=== PATIENT | female | born 1950 | race Caucasian/White ===

== ENCOUNTER 2017-02-25 19:24 | Inpatient (IN) | payer MEDICARE, MEDICAID ==
[~2017-02-25] VITALS: Ht 152.4 cm; Wt 44.9 kg
[2017-02-25 20:11] LABS: BASOPHILS 0.2 % (0-2); EOSINOPHILS 0.1 % (0-7); HEMOGLOBIN 13.2 g/dL (12-16); IMMATURE GRANULOCYTES 0.5 % (0-5); LYMPHOCYTES 6.3 % (15-50); MCH 25.5 pg (26.0-34.0); MCHC 31.4 g/dL (31.0-37.0); MCV 81.1 fL (80.0-100.0); MEAN PLATELET VOLUME 9.6 fL (7.4-10.4); NEUTROPHILS 85.9 % (40-80); PLATELET COUNT 212 10x3/uL (130-400); RBC 5.18 10x6/uL (4.00-5.40); RDW 16.2 % (11.5-14.5); WBC 10.4 10x3/uL (4.8-10.8)
[2017-02-25 20:31] LABS: ALBUMIN 3.2 g/dL (3.4-5.0); ANION GAP 15.7 mmol/L (8-16); BILIRUBIN - TOTAL 0.38 mg/dL (0.2-1.3); CALCIUM 10.9 mg/dL (8.5-10.1); CARBON DIOXIDE 27.3 mmol/L (21.0-32.0); PROTEIN - SERUM 7.3 g/dL (6.4-8.2)
[2017-02-25 20:54] LABS: MAGNESIUM - SERUM 1.4 mg/dL (1.8-2.4)
[2017-02-25 21:01] LABS: APPEARANCE CLEAR (CLEAR); BILIRUBIN NEGATIVE (NEGATIVE); COLOR YELLOW (YELLOW); GLUCOSE NEGATIVE (NEGATIVE); KETONE NEGATIVE (NEGATIVE); LEUKOCYTE ESTERASE NEGATIVE (NEGATIVE); NITRITE NEGATIVE (NEGATIVE); PROTEIN TRACE mg/dL (NEGATIVE); SPECIFIC GRAVITY 1.015 (1.005-1.020); UROBILINOGEN NORMAL (NORMAL)
[2017-02-25 21:09] LABS: UDS - AMPHET NEGATIVE QUAL (NEGATIVE); UDS - BARB NEGATIVE QUAL (NEGATIVE); UDS - BENZO NEGATIVE QUAL (NEGATIVE); UDS - COCAINE NEGATIVE QUAL (NEGATIVE); UDS - METH NEGATIVE QUAL (NEGATIVE); UDS - OPIATE NEGATIVE QUAL (NEGATIVE); UDS - PCP NEGATIVE QUAL (NEGATIVE); UDS - THC NEGATIVE QUAL (NEGATIVE)
[2017-02-25 21:11] LABS: TROPONIN-I 0.105 ng/mL (0.000-0.060)
[2017-02-26] VITALS (23 sets, daily range): BP systolic 98–161; BP diastolic 64–91; Ht 152.4 cm; Wt 44.9 kg
--- NOTE | 2017-02-26 01:30 | NUR ---
Received patient to 2302 from ER, transported via bed. Initial assessment performed, patient connected to monitors. No further needs at this time, all VSS and will continue to monitor.
--- NOTE | 2017-02-26 03:00 | NUR ---
Reassessment completed per flowsheet, patient resting in bed with eyes closed. Patient responds appropriately to most questions, cooperative but c/o pain with any type of contact. S1/S2 noted NSR on telemetry with HR 82, rhythmic and regular. Breathing is even and unlabored on 2L via NC with O2 sat 94%, Crackles noted bilateral upper with slightly diminished lower lobes. Generalized bruises/scabs noted. All pulses palpable with cap refill <3 sec. Denies other needs at this time, will continue to monitor.
--- NOTE | 2017-02-26 05:00 | NUR ---
Chlorhexidine bath given, patient tolerated well. No further needs at this time, all VSS and will continue to monitor.
--- NOTE | 2017-02-26 07:15 | NUR ---
REPORT RECIEVED FROM HAT LINER NURSE. PT RESTING IN BED QUIETLY. NO S/SX OF ACUTE DISTRESS NOTED AT THIS TIME. FULL ASSESSMENT COMPLETE PER FLOWSHEET. CALL LIGHT IN REACH. BED IN LOW POSITION. WILL CONT TO ASSESS FOR CHANGES.
[2017-02-26 07:56] LABS: INR 0.97 (0.85-1.17); PROTIME 12.8 SECONDS (11.6-15.0)
--- NOTE | 2017-02-26 09:53 | NUR ---
SPOKE WITH DAUGHTER. UPDATE PROVIDED. STATED SHE WAS OKAY WITH PT HAVING LUBAR PUNCTURE COMPLETE. STATED SHE WOULD BE BY AT NOON FOR VISITATAION.
--- NOTE | 2017-02-26 09:56 | NUR ---
BIT TONGUE TO LEFT SIDE. ORAL CARE PROVIDED TO REMOVE DRY BLOOD IN MOUTH.
--- NOTE | 2017-02-26 12:00 | NUR ---
DAUGHTER AT BEDSIDE. UPDATE PROVIDED.
--- NOTE | 2017-02-26 13:00 | NUR ---
MRI FORM COMPLETE WITH HELP OF DAUGHTER.
[2017-02-26 13:37] LABS: CKMB 3.7 U/L (0.0-3.6)
[2017-02-26 13:55] LABS: CREATINE KINASE 230 UL (21-215)
--- NOTE | 2017-02-26 14:30 | NUR ---
TAKEN TO MRI VIA STRETCHER.
--- NOTE | 2017-02-26 16:11 | NUR ---
PT TAKEN TO LUMBAR PUNCTURE. PREMEDICATION PROVIDED PER ORDERS FOR DR. DOMÍNGUEZ.
--- NOTE | 2017-02-26 17:30 | NUR ---
RETURNED FROM RADIOLOGY. CONNECTED TO ICU MONITORS. VSS. HOB AT 30 DEGREES. WILL CONT TO ASSESS.
[2017-02-26 18:12] LABS: APPEARANCE - CSF PINK; RBC - CSF 1530 cmm (0-0)
[2017-02-26 18:26] LABS: GLUCOSE - CSF 75 MG/DL (40-75); PROTEIN - CSF 89 MG/DL (12-60)
[2017-02-26 18:47] LABS: CKMB 2.2 U/L (0.0-3.6); CREATINE KINASE 166 UL (21-215); TROPONIN-I 0.046 ng/mL (0.000-0.060)
[2017-02-26] MEDS ORDERED: FORTEO PEN20 MCG SQ (18:58)
[2017-02-26] MEDS ORDERED: PREDNISONE10 MG PO (18:59)
[2017-02-26] MEDS ORDERED: AZULFIDINE500 MG PO (19:00)
[2017-02-26] MEDS ORDERED: HCTZ25 MG PO (19:00)
[2017-02-26] MEDS ORDERED: PRILOSEC10 M1 PO (19:01)
[2017-02-26] MEDS ORDERED: PAXIL40 MG PO (19:01)
[2017-02-26] MEDS ORDERED: ULTRAM50 MG PO (19:01)
[2017-02-26] MEDS ORDERED: VESICARE10 MG PO (19:02)
[2017-02-26] MEDS ORDERED: CYMBALTA30 MG PO (19:02)
[2017-02-26] MEDS ORDERED: ALENDRONATE SOD70 MG PO (19:03)
[2017-02-26] MEDS ORDERED: ROBAXIN500 MG PO (19:06)
[2017-02-26] MEDS ORDERED: OMEGA 3 FISH OI1 CAP PO (19:06)
--- NOTE | 2017-02-26 19:15 | NUR ---
Received patient awake in bed with eyes open, Assessment completed per flowsheet. Patient AO x4, disoriented to time. Eyes PERRLA @ 4mm with brisk response, sclera is white. Bruising noted around L eye, some swelling noted. S1/S2 noted NSR on telemetry with HR 86, rhythmic and regular. Breathing is shallow and unlabored on 2L via NC with O2 sat 96%, Crackles noted upper with diminished lower. Abdomen is flat and non-tender, bowel sounds active x4. Hurley secured in place with halley urine noted in collection. Full ROM all extremities with slight weakness noted, all pulses palpable with cap refill <3 sec. L subclavian CVL noted, dressing intact with fluids infusing. Patient denies pain or other needs at this time, all VSS and will continue to monitor.
--- NOTE | 2017-02-26 23:15 | NUR ---
Reassessment completed per flowsheet, patient resting in bed with eyes closed. S1/S2 noted NSR on telemetry with HR 76, rhythmic and regular. Breathing is shallow and unlabored on 2L via NC with O2 sat 95%, crackles noted bilateral upper with diminished lower. Patient AO x4 with calm and cooperative demeanor. Patient c/o headache 11/08, PRN pain medication given and will reassess. No further needs at this time, all VSS and will continue to monitor.
[2017-02-26 23:52] LABS: CKMB 5.3 U/L (0.0-3.6); CREATINE KINASE 437 UL (21-215); TROPONIN-I 0.037 ng/mL (0.000-0.060)
[2017-02-27] VITALS (13 sets, daily range): BP systolic 109–152; BP diastolic 48–90
--- NOTE | 2017-02-27 03:00 | NUR ---
Reassessment completed per flowsheet, patient resting in bed with eyes closed. Patient AO x4, calm and cooperative. S1/S2 noted NSR on telemetry with HR 71, rhythmic and regular. Breathing is shallow and unlabored on 2L via NC with O2 sat 95%. Patient states pain 1/10 in head, denies need for medication. No further needs at this time, all VSS and will continue to monitor.
[2017-02-27 04:35] LABS: BASOPHILS 0.2 % (0-2); HEMATOCRIT 38.2 % (36.0-48.0); HEMOGLOBIN 11.3 g/dL (12-16); IMMATURE GRANULOCYTES 0.3 % (0-5); LYMPHOCYTES 26.6 % (15-50); MCH 24.8 pg (26.0-34.0); MCHC 29.6 g/dL (31.0-37.0); MCV 83.8 fL (80.0-100.0); MEAN PLATELET VOLUME 9.4 fL (7.4-10.4); MONOCYTES 12.6 % (2-11); NEUTROPHILS 59.3 % (40-80); PLATELET COUNT 216 10x3/uL (130-400); RBC 4.56 10x6/uL (4.00-5.40); RDW 16.6 % (11.5-14.5)
[2017-02-27 04:59] LABS: ALBUMIN 2.7 g/dL (3.4-5.0); ANION GAP 6.1 mmol/L (8-16); BILIRUBIN - TOTAL 0.13 mg/dL (0.2-1.3); CALCIUM 9.8 mg/dL (8.5-10.1); CREATININE - SERUM 0.9 mg/dL (0.6-1.3); POTASSIUM - SERUM 3.4 mmol/L (3.5-5.1)
[2017-02-27 05:01] LABS: CARBON DIOXIDE 35.3 mmol/L (21.0-32.0); MAGNESIUM - SERUM 2.1 mg/dL (1.8-2.4)
--- NOTE | 2017-02-27 07:00 | NUR ---
SHIFT ASSESSMENT VIA FLOWSHEET, SEE FOR DETAILS.
[2017-02-27 07:38] LABS: APPEARANCE - CSF PINK
[2017-02-27 07:39] LABS: RBC - CSF 4800 cmm (0-0)
--- NOTE | 2017-02-27 10:27 | NUR ---
Is the patient Alert and Oriented? Yes 0 * How many steps to enter\exit or inside your home? 10 0 * PCP DR. BENJAMIN 0 * Pharmacy [facility] 0 * Preadmission Environment Home with Family 0 * ADLs Independent 0 * Equipment Cane 0 * List name and contact numbers for known caregivers / representatives who currently or will assist patient after discharge: DAUGHTER: FANTA COWAN [phone] 0 * Community resources currently utilized None 0 * Additional services required to return to the preadmission environment? Yes 0 * Can the patient safely return to the preadmission environment? Yes 0 * Has this patient been hospitalized within the prior 30 days at any hospital? No PATIENT IS AWAKE AND ALERT. SHE STATES SHE LIVES AT HOME WITH HER DAUGHTER, FANTA COWAN. SHE STATES THAT HER DAUGHTER WILL BE AVAILABLE TO DRIVE HER HOME AT DISCHARGE. PATIENT STATES HER PCP IS DR. BENJAMIN. SHE GETS HER MEDS FROM [facility]. PATIENT STATES SHE HAS A CANE AT HOME BUT DOES NOT USE IT. SHE STATES THERE ARE ABOUT 10 STEPS WITH A RAIL TO ENTER HER DAUGHTERS HOME. PATIENT STATES SHE HAD HOME HEALTH IN THE PAST BUT DOES NOT RECALL THE NAME OF THE AGENCY. PATIENT MAY BENEFIT FROM HOME HEALTH AT DISCHARGE.
--- NOTE | 2017-02-27 12:10 | NUR ---
GRANDDAUGHTER AT BEDSIDE, UPDATE PROVIDED.
--- NOTE | 2017-02-27 13:25 | NUR ---
PT TO ROOM 2217 VIA BED.
--- NOTE | 2017-02-27 13:53 | NUR ---
PT TO ROOM 2217 FROM ICU VIA BED.PT WITHOUT DISTRESS.BRUISES NTED TO LEFT EYE AND ILATERAL ARMS.02 AT 2 LITERS PER NASAL CANULA,RESP NON LABORED.HUTCHINS TO GRAVITY WITH CLEAR,YELLOW URINE IN BAG.LEFT UPPER ARM I PATENT ,LR @ 75. SCD'S IN PLACE,BUT MACHINE NEEDED.FALL PREVENTION INITIATED.DOOR OPEN TO MONITOR
--- NOTE | 2017-02-27 17:07 | NUR ---
REMAINS WITHOUT DISTRESS.FALL PREVENTION IN PLACE.MONITOR
[2017-02-28] VITALS: BP 130/82
[2017-02-28 04:00] VITALS: BP 122/78
--- NOTE | 2017-02-28 04:27 | NUR ---
ASSESSED AT THE BEGINNING OF THE SHIFT. PT IS ALERT AND ORIENTED, WITH SOME PERIODS OF CONFUSION. HER DAUGHTER WAS AT THE BEDSIDE DURING THE FIRST OF THE SHIFT. SHE IS ABLE TO TURN AND REPOSTION FOR COMFORT AND SKIN CARE. DURING THE NIGHT SHE RECEIVED A GOOD BATH AND HAD HER HAIR WASHED. SHE HAS A HUTCHINS TO VOID AND WE HAVE ASSISTED HER UP TO THE BATHROOM TO HAVE A BM. SHE IS WEARING HER SCD'S AND THE BED IS LOW, RAILS UP X'S 2 WITH THE CALL LIGHT AT HAND.
--- NOTE | 2017-02-28 07:33 | NUR ---
SLEEPING, BREATHING EVEN UNLABORED, CALL LIGHT IN REACH, GAETANO MAT ALARM ON, WILL CONTINUE TO MONITOR
[2017-02-28 09:19] VITALS: BP 109/71; BP 133/90
[2017-02-28 10:24] LABS: BASOPHILS 0.2 % (0-2); EOSINOPHILS 1.2 % (0-7); HEMATOCRIT 38.4 % (36.0-48.0); HEMOGLOBIN 11.4 g/dL (12-16); IMMATURE GRANULOCYTES 0.4 % (0-5); LYMPHOCYTES 23.2 % (15-50); MCH 25.4 pg (26.0-34.0); MCHC 29.7 g/dL (31.0-37.0); MCV 85.5 fL (80.0-100.0); MEAN PLATELET VOLUME 9.6 fL (7.4-10.4); MONOCYTES 11.2 % (2-11); NEUTROPHILS 63.8 % (40-80); PLATELET COUNT 224 10x3/uL (130-400); RBC 4.49 10x6/uL (4.00-5.40); RDW 16.8 % (11.5-14.5); WBC 5.1 10x3/uL (4.8-10.8)
[2017-02-28 10:42] LABS: ALBUMIN 2.8 g/dL (3.4-5.0); ALKALINE PHOSPHATASE 56 U/L (46-116); ALT (SGPT) 26 U/L (10-68); BILIRUBIN - TOTAL 0.19 mg/dL (0.2-1.3); CALC OSMOLALITY 288 mosm/kg (275-300); CALCIUM 9.5 mg/dL (8.5-10.1); CARBON DIOXIDE 31.7 mmol/L (21.0-32.0); CHLORIDE - SERUM 106 mmol/L (98-107); CREATININE - SERUM 0.8 mg/dL (0.6-1.3); GLUCOSE 140 mg/dL (74-106); POTASSIUM - SERUM 3.4 mmol/L (3.5-5.1); PROTEIN - SERUM 7.4 g/dL (6.4-8.2); SODIUM 144 mmol/L (136-145); UREA NITROGEN 12 mg/dL (7-18); eGFR NON AFRICAN AMERICAN 76 mL/min (90-120)
--- NOTE | 2017-02-28 12:24 | EEG ---
PATIENT:MARY LOUIE DATE OF SERVICE: 02/25/17 MEDICAL RECORD: [id number] DATE OF : 50 LOCATION:D.221 D.MS ADMISSION DATE: 02/25/17 REFERRING PHYSICIAN: INTERPRETING PHYSICIAN: JAG MENA MD DATE OF SERVICE: 02/27/2017 REFERRED BY: Dr. Benita Lang as an inpatient currently in room 2302. ELECTROENCEPHALOGRAM NUMBER: [id number]. DATE OF EXAMINATION: 02/26/2017 at 12:15 p.m. TECHNICAL DATA: This electroencephalographic recording consisted of approximately 20 minutes of data collection utilizing the international 10/20 system of electrode placement and both referential and non-referential montages. Sixteen channels of electrocerebral recording are accompanied by a 17th channel dedicated to the electrocardiographic rhythm and 2 channels of electromyographic recording. Recording is performed in the awake and drowsy states utilizing activation by photic stimulation. ELECTROENCEPHALOGRAPHIC DATA: The awake state comprises approximately 40% of the recorded electrocerebral activity. Electromyographic artifact is prominent and rapid eye movements are seen. The posterior dominant background consists of a symmetric, semi-rhythmic, waxing and waning 5-6 Hz theta activity, which is suppressed by eye opening. Also seen is an intermittent irregular generalized and symmetric 2-3 Hz delta slowing, which occurs for periods of 1-2 seconds approximately once every 1-2 pages. The drowsy state comprises the remaining portion of the recorded electrocerebral activity. Electromyographic artifact is diminished and rapid eye movements are not seen. The posterior dominant background is relatively suppressed. Delta slowing is more prominent in stage I sleep. No focal slowing is identified. No epileptiform discharges are seen. Photic stimulation induces no abnormal change in the recorded electrocerebral activity. INTERPRETATION: 1. Intermittent slow, generalized (awake and drowsy). 2. Background slow. This electroencephalographic recording is indicative of a mild to moderate diffuse encephalopathy. TRANSINT:[id number] Voice Confirmation ID: [id number] DOCUMENT ID: [id number] ELECTROENCEPHALOGRAM REPORT [id number] MARY LOUIE JAG MENA MD at 1224 CC: [id number] DICTATION DATE: 02/27/17 0652 TUNNELING MACHINE OPERATOR: 02/28/17 0003 ADM IN [place] [id number] [place] [address]
[2017-02-28 12:45] VITALS: BP 136/89
--- NOTE | 2017-02-28 12:48 | NUR ---
NUTRITION MONITORING & EVAL CHART REVIEWED, PT VISIT. TOLERATING REG DIET. TAKES CONSIDERABLE TIME TO EAT MEALS. WILL CONTINUE TO HONOR FOOD PREFERNECES. RD FOLLOWING
[2017-02-28] MEDS ORDERED: ZPAK PO (14:10)
--- NOTE | 2017-02-28 14:48 | NUR ---
PT CONFUSED AT TIMES RESP EVEN AND NONLABORED IV TO LEFT FOREARM PATENT AND INTACT PT DENIES NEEDS AT THIS TIME SRX2 BED AT LOWEST SETTING CALL LIGHT WITHIN REACH WILL CONTINUE TO MONITOR
--- NOTE | 2017-02-28 16:16 | NUR ---
Received DC order, patient on rom air POX 97- 99%. Patient will be discharged home with House Calls and patient denies any HH needs at this time. Daughter at bedside and will be driving her home.
--- NOTE | 2017-02-28 17:47 | NUR ---
DISCHARGE INSTRUCTIONS GIVEN TO PATIENT AND DAUGHTER, QUESTIONS ANSWERED, IV REMOVED TIP INTACT, DISCHARGED PER WC WITH BELONGINGS
[2017-03-01 03:08] LABS: ACID FAST SMEAR Negative (()); AFB SPECIMEN PROCESSING Concentration (())
== END 2017-02-28 18:22 | disposition home or self-care (01) | DRG 100 ==
LOC: D.ER 19:24 → D.MS 23:16 → D.ICU 23:16 → D.MS 02-27 13:29
PROVIDERS: Emergency Medicine; Psychiatry & Neurology Neurology; Radiology Diagnostic Radiology; ADMIT Family Medicine
PROC: 009U3ZZ Drainage of Spinal Canal, Percutaneous Approach (ICD-10-PCS; principal; 2017-02-26)
DX: R56.9 Unspecified convulsions (principal); G93.40 Encephalopathy, unspecified; M06.9 Rheumatoid arthritis, unspecified; K21.9 Gastro-esophageal reflux disease without esophagitis; F32.9 Major depressive disorder, single episode, unspecified; M81.0 Age-related osteoporosis without current pathological fracture; E87.6 Hypokalemia; J20.9 Acute bronchitis, unspecified

== ENCOUNTER 2020-02-05 16:47 | Inpatient (IN) | payer MEDICARE, MEDICAID ==
[~2020-02-05] VITALS: Ht 152.4 cm; Wt 56.1 kg
[~2020-02-05 16:47] MED LIST: ALENDRONATE SOD70 MG PO; AZULFIDINE500 MG PO; CYMBALTA30 MG PO; FORTEO PEN20 MCG SQ; HCTZ25 MG PO; OMEGA 3 FISH OI1 CAP PO; PAXIL40 MG PO; PREDNISONE10 MG PO; PRILOSEC10 M1 PO; ROBAXIN500 MG PO; ULTRAM50 MG PO; VESICARE10 MG PO; ZPAK PO
[2020-02-05] MEDS ORDERED: VESICARE10 MG PO (16:58)
[2020-02-05] MEDS ORDERED: LIPITOR20 MG PO (16:58)
[2020-02-05] MEDS ORDERED: PAXIL20 MG PO (16:59)
[2020-02-05] MEDS ORDERED: MAG-OX 400 MG400 MG PO (17:00)
[2020-02-05] MEDS ORDERED: HYDROXYCHLOROQ200 MG PO (17:00)
[2020-02-05] MEDS ORDERED: ULTRAM50 MG PO (17:01)
[2020-02-05] MEDS ORDERED: LIORESAL 10 MG10 MG PO (17:01)
[2020-02-05] MEDS ORDERED: AZULFIDINE500 MG PO (17:02)
[2020-02-05] MEDS ORDERED: GABAPENTIN300 MG PO (17:03)
--- NOTE | 2020-02-05 17:21 | NUR ---
PT'S DAUGHTERS PHONE NUMBER FOR EMERGENCY CONTACT [phone]
[2020-02-05 17:45] LABS: APTT 33.4 SECONDS (22.8-39.4); INR 0.95 (0.85-1.17); PROTIME 12.7 SECONDS (11.6-15.0)
[2020-02-05 17:47] LABS: HEMATOCRIT 36.3 % (36.0-48.0); HEMOGLOBIN 10.5 g/dL (12-16); LYMPHOCYTES 34.4 % (15-50); MCH 24.8 pg (26.0-34.0); MCHC 28.9 g/dL (31.0-37.0); MCV 85.6 fL (80.0-100.0); MEAN PLATELET VOLUME 8.7 fL (7.4-10.4); NEUTROPHILS 56.4 % (40-80); PLATELET COUNT 292 10x3/uL (130-400); RBC 4.24 10x6/uL (4.00-5.40); RDW 18.2 % (11.5-14.5)
[2020-02-05 17:56] LABS: CALC OSMOLALITY 284 mosm/kg (275-300); CALCIUM 8.3 mg/dL (8.5-10.1); CARBON DIOXIDE 29.2 mmol/L (21.0-32.0); CHLORIDE - SERUM 107 mmol/L (98-107); CREATININE - SERUM 0.8 mg/dL (0.6-1.3); POTASSIUM - SERUM 3.9 mmol/L (3.5-5.1); SODIUM 142 mmol/L (136-145); UREA NITROGEN 21 mg/dL (7-18); eGFR NON AFRICAN AMERICAN 75 mL/min (90-120)
[2020-02-05 17:57] LABS: BILIRUBIN NEGATIVE (NEGATIVE); GLUCOSE NEGATIVE (NEGATIVE); KETONE NEGATIVE (NEGATIVE); NITRITE NEGATIVE (NEGATIVE); UROBILINOGEN NORMAL (NORMAL)
[2020-02-05 17:59] LABS: ALBUMIN 2.7 g/dL (3.4-5.0); ALKALINE PHOSPHATASE 51 U/L (30-120); ALT (SGPT) 19 U/L (10-68); PROTEIN - SERUM 6.4 g/dL (6.4-8.2)
[2020-02-05 18:00] LABS: GLUCOSE 78 mg/dL (74-106)
--- NOTE | 2020-02-05 18:14 | NUR ---
spoke with daughter iona [phone]
--- NOTE | 2020-02-05 19:15 | NUR ---
PATIENT RESTING IN BED WITH NO S/S OF DISTRESS. PATIENT DENIES NEEDS AT THIS TIME. BED IN LOWEST POSITION AND CALL LIGHT WITHIN REACH. ENCOURAGED THE PATIENT TO CALL IF SHE HAS NEEDS. WILL CONTINUE TO MONITOR.
--- NOTE | 2020-02-05 19:58 | NUR ---
SPOKE WITH DR. REDDING IN REGARDS TO [facility]. DR. REDDING CONFIRMED TO LEAVE [facility] OFF.
[2020-02-05] MEDS ORDERED: MULTI-DAY VITAM1 TAB PO (20:08)
[2020-02-05 21:22] VITALS: BP 145/89; BMI 19.5
[2020-02-05 23:58] VITALS: BP 104/72
[2020-02-06] VITALS (14 sets, daily range): BP systolic 122–168; BP diastolic 65–105
--- NOTE | 2020-02-06 06:50 | NUR ---
WALKED IN PATIENT ROOM, PATIENT NOT EASILY AROUSABLE. CHECKED VITALS, O2 IN THE 50'S. PLACED PATIENT ON OXYGEN. O2 AT 96% ON 4L OXYGEN. PATIENT ABLE TO COMMUNICATE PERSON, PLACE, AND SITUATION. PLACED PATIENT ON CONTINUOUS PULSE OX AND TOOK WEB DEVELOPER PROGRAMMER BUTTON FROM PATIENT. WILL CONTINUE TO MONITOR PATIENT.
[2020-02-06 07:10] LABS: HEMATOCRIT 37.1 % (36.0-48.0); HEMOGLOBIN 10.5 g/dL (12-16); LYMPHOCYTES 35.6 % (15-50); MCH 24.9 pg (26.0-34.0); MCHC 28.3 g/dL (31.0-37.0); MEAN PLATELET VOLUME 8.6 fL (7.4-10.4); NEUTROPHILS 56.5 % (40-80); PLATELET COUNT 316 10x3/uL (130-400); RBC 4.22 10x6/uL (4.00-5.40); RDW 17.8 % (11.5-14.5)
[2020-02-06 07:11] LABS: MCV 87.9 fL (80.0-100.0); WBC 9.7 10x3/uL (4.8-10.8)
[2020-02-06 07:45] LABS: ALBUMIN 2.6 g/dL (3.4-5.0); ALKALINE PHOSPHATASE 52 U/L (30-120); ALT (SGPT) 20 U/L (10-68); BILIRUBIN - TOTAL 0.25 mg/dL (0.2-1.3); CALC OSMOLALITY 282 mosm/kg (275-300); CALCIUM 8.5 mg/dL (8.5-10.1); CARBON DIOXIDE 28.1 mmol/L (21.0-32.0); CHLORIDE - SERUM 106 mmol/L (98-107); CREATININE - SERUM 0.8 mg/dL (0.6-1.3); GLUCOSE 98 mg/dL (74-106); POTASSIUM - SERUM 3.4 mmol/L (3.5-5.1); PROTEIN - SERUM 7.1 g/dL (6.4-8.2); SODIUM 141 mmol/L (136-145); UREA NITROGEN 17 mg/dL (7-18); eGFR NON AFRICAN AMERICAN 75 mL/min (90-120)
[2020-02-06 09:40] LABS: CHOL - HDL RATIO 2.2 ratio (2.3-4.1)
--- NOTE | 2020-02-06 10:58 | NUR ---
AT APPROX 0900, ALEKSANDER ARITA ROUNDED AND HAD ME GIVE PT 0.25 ML OF NARCAN. ADMINISTERED PER ORDERS. PT DID BECOME MORE AROUSABLE. HER SPEECH WAS STILL SLURRED AND SHE WAS NOT MAKING SENSE WITH MOST OF HER CONVERSATION. PT SENT TO RADIOLOGY FOR HEAD CT AT THAT TIME. LAB VALUES RETURNED WITH A CRITICAL VALUE ON HER D-DIMER. REPORTED THAT TO ALEKSANDER. SHE ORDERED CTA ON PT. PT ONLY HAD 22G IV TO HER RIGHT FOREARM, NEEDED 20G FOR TEST. HAD TO CALL ER FOR ASSISTANCE OBTAINING PATENT IV, PLACED 20G TO RIGHT FOREARM. PT TAKEN BACK TO RADIOLOGY. CALLED REPORT TO LUL BOLAÑOS IN ICU. NOTIFIED FAMILY MEMBER OF TRANSFER.
--- NOTE | 2020-02-06 11:27 | NUR ---
REC'D PT TO ICU AFTER CT DONE. ALL MONITORING EQUIPMENT ATTACHED AND ALARMS SET.
--- NOTE | 2020-02-06 14:22 | NUR ---
PT REPOSITIONED FOR COMFORT AND ECHO ECH HERE AT BS.
--- NOTE | 2020-02-06 14:54 | NUR ---
PT DIAPHORETIC AND CONFUSED. FSBS PERFORMED AND RESULTS REVEAL 56. 1 AMP D50 GIVEN AND NOTIFIED DR WALTERS. RECEIVED NEW ORDERS.
--- NOTE | 2020-02-06 15:31 | NUR ---
FSBS 194. RT EYE RED. DR WALTERS NOTIFIED AND CAME TO BEDSIDE. PT FOLLOWS COMMAND AND WOOD. VSS.
--- NOTE | 2020-02-06 15:51 | NUR ---
PT WITH DECREASED LOC. NARCAN GIVEN AND PT WORE UP. ENCOURAGED PT TO COUGH AND DEEP BREATH.
--- NOTE | 2020-02-06 16:03 | NUR ---
REPORTED TO DR WALTERS RE: NARCAN GIVEN AND REC'D NEW ORDERS TO DECREASE DILAUDID.
--- NOTE | 2020-02-06 20:35 | NUR ---
PT RECEIVED FROM ICU TO CV TOLERATED TRANSFER WELL TO CVICU BED. PLACE N/C 2LPM TO WALL AND TO MONITOR. VITAL SIGNS STABLE. NO S/S OF DISTRESS. RIGHT EYE RED AND SWOLLEN UPON REPORT. DENIES PAIN OR DISCOMFORT TO EYE. PT DOES MOAN WITH MOVING BUT IS QUICKLY CALM. WILL CONTINUE TO OBSERVE.
--- NOTE | 2020-02-06 20:55 | NUR ---
DAUGHTER CALLED, PASSCODE GIVEN. UPDATE GIVEN.
--- NOTE | 2020-02-06 22:05 | NUR ---
PT SIGNGED CONCENTS SPEECH NOT CLEAR BUT ORIENTED TO PERSON, PLACE, TIME, AND SITUATION. HANDS CONTRACTED FROM ARTHRITIS MAKING SIGNITURE UNCLEAR, SIGNING WITNESSED BY OTHER RN. WILL CONTINUE TO OBSERVE.
[2020-02-07] VITALS (45 sets, daily range): BP systolic 82–202; BP diastolic 49–116
--- NOTE | 2020-02-07 00:50 | NUR ---
PT RESTING WITH EYES CLOSED AND CHEST RISING. NO S/S OF DISTRESS. WILL CONTINUE TO OBSERVE.
--- NOTE | 2020-02-07 02:52 | NUR ---
PT COMPLAINING OF HEADACHE AND RIGHT EYE WITH INCREASING BULG. DR. WALTERS CALLED AND REPORTED HEADACHE AND INCREASED BULGE, HE STATED HE WAS AWARE AND IT WAS NOT AN CONCERN AND NO ORDERS GIVEN.
[2020-02-07 06:14] LABS: CALC OSMOLALITY 290 mosm/kg (275-300); CALCIUM 8.9 mg/dL (8.5-10.1); CARBON DIOXIDE 30.1 mmol/L (21.0-32.0); CHLORIDE - SERUM 108 mmol/L (98-107); CREATININE - SERUM 0.6 mg/dL (0.6-1.3); MAGNESIUM - SERUM 1.9 mg/dL (1.8-2.4); SODIUM 143 mmol/L (136-145); UREA NITROGEN 14 mg/dL (7-18); eGFR NON AFRICAN AMERICAN > 90 mL/min (90-120)
[2020-02-07 06:19] LABS: GLUCOSE 192 mg/dL (74-106)
--- NOTE | 2020-02-07 06:27 | NUR ---
CHG BATH GIVEN X2 NURSES, COMPLETE LINEN CHANGE PROVIDED.
--- NOTE | 2020-02-07 07:00 | NUR ---
PT REPORT RECEIVED FROM AMUSEMENT PARK ENTERTAINER NURSE. NO ACUTE SIGNS OF DISTRESS NOTED. PT RIGHT EYE SWOLLEN AND BLOODY. SHIFT ASSESSMENT COMPLETED. WILL CONTINUE TO MONITOR
[2020-02-07 07:43] LABS: HEMATOCRIT 37.6 % (36.0-48.0); HEMOGLOBIN 10.5 g/dL (12-16); LYMPHOCYTES 9.9 % (15-50); MCH 24.8 pg (26.0-34.0); MCHC 27.9 g/dL (31.0-37.0); MCV 88.9 fL (80.0-100.0); MEAN PLATELET VOLUME 9.2 fL (7.4-10.4); NEUTROPHILS 82.5 % (40-80); PLATELET COUNT 268 10x3/uL (130-400); RBC 4.23 10x6/uL (4.00-5.40); RDW 18.3 % (11.5-14.5); WBC 9.7 10x3/uL (4.8-10.8)
--- NOTE | 2020-02-07 07:58 | NUR ---
DR REDDING'S NURSE PRACTITIONER IN ROOM. UPDATE GIVEN. ASSESSED RT EYE.
--- NOTE | 2020-02-07 09:00 | NUR ---
PT FAMILY MEMBER, FANTA COWAN, CALLED TO OBTAIN CONSENT FOR ANESTHESIA. CONSENT OBTAINED, AND WITNESSED BY KATHERIN MCCARTY.
--- NOTE | 2020-02-07 09:56 | NUR ---
EKG PERFORMED FOR SURGERY. PT TOLERATED WELL. STATES SHE IS COLD. WARM BLANKET GIVEN TO PT. WILL CONTINUE TO MONITOR
--- NOTE | 2020-02-07 11:25 | NUR ---
PT STATED THAT SHE NEEDED TO THROW UP. ZOFRAN GIVEN AT THIS TIME. PT VERY ANXIOUS. CONSTANTLY CALLING FOR NURSE.
--- NOTE | 2020-02-07 14:06 | NUR ---
PT HAS BEEN PREOPPED. WAITING ON SURGERY CREW
--- NOTE | 2020-02-07 14:29 | NUR ---
SURGERY IN ROOM PREPARING TO TRANSPORT PT TO OR. WILL CONTINUE TO MONITOR
--- NOTE | 2020-02-07 16:46 | NUR ---
PT ARRIVED TO UNIT INTUBATED. HOOKED UP TO ICU MONITOR. PULSES PALPABLE IN LT LEG. NO SIGNS OF DISTRESS NOTED. ON VENT PER RT.
--- NOTE | 2020-02-07 16:48 | MORECARE ---
CASE MANAGEMENT DISCHARGE SUMMARY PATIENT: MARY LOUIE UNIT: [id number] ADM DATE: 02/05/20 AGE: 69 : 50 SEX: F ROOM/BED: [facility] AUTHOR: YASMIN,DOC PHYSICIAN: REFERRING PHYSICIAN: PRISCILLA WALTERS MD DATE OF SERVICE: 02/07/20 Discharge Plan Patient Name: MARY LOUIE Facility: [facility]:[place] : 1950 Planned Disposition: Anticipated Discharge Date: Discharge Date: Expected LOS: Initial Reviewer: [email or web address] Initial Review Date: 02/07/2020 Generated: 02/07/20 5:47 pm Comments DCP- Discharge Planning Updated by [email or web address]: Jillian Lopez on 02/07/20 3:[address] CM attempted to see patient today regarding discharge planning / needs. Patient was in surgery at this time. CM will continue to follow and assist as needed with discharge planning. DCPIA - Discharge Planning Initial Assessment Updated by [email or web address]: Jillian Lopez on 02/07/20 4:39 pm * Is the patient Alert and Oriented? No * How many steps to enter\exit or inside your home? Patient Name: MARY LOUIE Page [phone] at 1648 All edits/amendments must be made on the electronic document DICTATION DATE: 02/07/201646 PANEL MAKER: KINGSTON 02/07/201646 RPT#: [id number] DC DATE: STATUS: ADM IN [facility] [address] [place] [address] END OF REPORT
--- NOTE | 2020-02-07 18:37 | NUR ---
DECREASED FIO2 TO 60% PER ABG
--- NOTE | 2020-02-07 20:30 | NUR ---
DAUGHTER CALLED GIVEN REPORT AFTER PASSCODE GIVEN.
[2020-02-08] VITALS (48 sets, daily range): BP systolic 87–182; BP diastolic 48–95; BMI 19.5
--- NOTE | 2020-02-08 00:52 | NUR ---
PT RECEIVED INTUBATED AND SEDATED. AROUSED EASILY. HUTCHINS PATENT. COVERING OVER RIGHT EYE. RIGHT IJ PATENT. NO S/S OF DISTRESS. WILL CONTINUE TO OBSERVE.
[2020-02-08 06:35] LABS: CALC OSMOLALITY 276 mosm/kg (275-300); CALCIUM 7.9 mg/dL (8.5-10.1); CARBON DIOXIDE 24.3 mmol/L (21.0-32.0); CHLORIDE - SERUM 107 mmol/L (98-107); CREATININE - SERUM 0.8 mg/dL (0.6-1.3); GLUCOSE 70 mg/dL (74-106); MAGNESIUM - SERUM 1.5 mg/dL (1.8-2.4); SODIUM 140 mmol/L (136-145); UREA NITROGEN 13 mg/dL (7-18); eGFR NON AFRICAN AMERICAN 75 mL/min (90-120)
--- NOTE | 2020-02-08 07:25 | NUR ---
[facility] ASS[facility] PROGRAMMER, REPORTED URINE OUTPUT 275 AND RECEIVED ORDER FOR PRO BNP. LAB COLLECTED AND SENT TO LAB. REPORTED TO ONCOMING NURSE.
[2020-02-08 07:29] LABS: HEMATOCRIT 26.8 % (36.0-48.0); HEMOGLOBIN 7.8 g/dL (12-16); LYMPHOCYTES 19.9 % (15-50); MCH 24.8 pg (26.0-34.0); MCHC 29.1 g/dL (31.0-37.0); MCV 85.4 fL (80.0-100.0); MEAN PLATELET VOLUME 9.6 fL (7.4-10.4); NEUTROPHILS 73.8 % (40-80); PLATELET COUNT 246 10x3/uL (130-400); RBC 3.14 10x6/uL (4.00-5.40); RDW 17.7 % (11.5-14.5); WBC 8.7 10x3/uL (4.8-10.8)
--- NOTE | 2020-02-08 09:56 | NUR ---
0700 PT RECIEVED ON VENT, ETT SECURED, VSS, PT EASILY AGITATED AND DOES NOT FOLLOW COMMANDS BUT MOVES ALL EXTREMETIES, HITTING HANDS ON SIDE RAILS AND UNABLE TO BE REORIENTED, PT TO BE WEANED OFF VENT PER RT, R EYE EDEMATOUS AND RED, SEE SHIFT ASSESSMENT FOR DETAILS PRBCS ORDERED AND INFUSING PO MEDS HELD PER DR DE LA TORRE
--- NOTE | 2020-02-08 11:40 | MORECARE ---
CASE MANAGEMENT DISCHARGE SUMMARY PATIENT: MARY LOUIE UNIT: [id number] ADM DATE: 02/05/20 AGE: 69 : 50 SEX: F [facility] AUTHOR: MANNY HOFFMAN PHYSICIAN: REFERRING PHYSICIAN: PRISCILLA WALTERS MD DATE OF SERVICE: 02/08/20 Discharge Plan Patient Name: MARY LOUIE Facility: [facility]:[place] : 1950 Planned Disposition: Anticipated Discharge Date: Discharge Date: Expected LOS: Initial Reviewer: [email or web address] Initial Review Date: 02/07/2020 Generated: 02/08/20 12:39 pm DCP- Discharge Planning Updated by [email or web address]: Jillian Lopez on 02/08/20 10:[address] Patient is currently on vent sedated. CM has attempted to call daughter Fifi Barkley [phone] multiple times this am and has gotten a busy signal each time. CM will continue to try to contact daughter for discharge planning. DCP- Discharge Planning Updated by [email or web address]: Jillian Lopez on 02/07/20 3:[address] CM attempted to see patient today regarding discharge planning / needs. Patient was in surgery at this time. CM will continue to follow and assist as needed with discharge planning. DCPIA - Discharge Planning Initial Assessment Updated by [email or web address]: Jillian Lopez on 02/07/20 4:39 pm * Is the patient Alert and Oriented? No * How many steps to enter\exit or inside your home? Last DP export: 02/07/20 3:48 p Patient Name: MARY LOUIE Page [phone] at 1140 All edits/amendments must be made on the electronic document DICTATION DATE: 02/08/20 1139 KISS MIXER: KINGSTON 02/08/20 1139 RPT#: [id number] DC DATE: STATUS: ADM IN [facility] [address] [place] [address] END OF REPORT
--- NOTE | 2020-02-08 13:22 | NUR ---
pt extubated 1320, pulling at cvl and all monitoring equipment so continued with restraints per dr young
--- NOTE | 2020-02-08 13:40 | NUR ---
WHEN NOT BEING STIMULATED PT IS APNIC AND SPO2 DROPPING INTO THE 70S, RT AWARE AND DR RELL XIONG, STATED HE WOULD GIVE BIPAP ORDERS TO JONI RT. WHEN PT IS STIMULATED DURING APNIC EPISODES SHE COMES TO GASPING FOR BREATH THEN AGAIN DOZES OFF AND AGAIN IS APNIC.
--- NOTE | 2020-02-08 14:35 | NUR ---
pt became apnic spo2 dropped, unresponsive, began bagging pt, called rt and dr young, intubated by dr young, daughter called and updated
--- NOTE | 2020-02-08 15:29 | MORECARE ---
CASE MANAGEMENT DISCHARGE SUMMARY PATIENT: MARY LOUIE UNIT: [id number] ADM DATE: 02/05/20 AGE: 69 : 50 SEX: F ROOM/BED: [facility] AUTHOR: MANNY HOFFMAN PHYSICIAN: REFERRING PHYSICIAN: PRISCILLA WALTERS MD DATE OF SERVICE: 02/08/20 Discharge Plan Patient Name: MARY LOUIE Facility: [facility] : 1950 Planned Disposition: Anticipated Discharge Date: Discharge Date: Expected LOS: Initial Reviewer: [email or web address] Initial Review Date: 02/07/2020 Generated: 02/08/20 4:28 pm Comments DCP- Discharge Planning Updated by [email or web address]: Jillian Loepz on 02/08/20 2:[address] CM attempted to call patient's daughter again for discharge planning Fifi Barkley [phone] and also called patient's listed number [phone] and no voicemail set up. CM will continue to attempt to contact family. DCP- Discharge Planning Updated by [id number]: Jillian Lopez on 02/08/20 10:[address] Patient is currently on vent sedated. CM has attempted to call daughter Fifi Barkley [phone] multiple times this am and has gotten a busy signal each time. CM will continue to try to contact daughter for discharge planning. DCP- Discharge Planning Updated by [email or web address]: Jillian Lopez on 02/07/20 3:[address] CM attempted to see patient today regarding discharge planning / needs. Patient was in surgery at this time. CM will continue to follow and assist as needed with discharge planning. DCPIA - Discharge Planning Initial Assessment Updated by [email or web address]: Jillian Lopez on 02/07/20 4:39 pm * Is the patient Alert and Oriented? No * How many steps to enter\exit or inside your home? Last DP export: 02/08/20 10:40 a Patient Name: MARY LOUIE Page [phone] at 1529 All edits/amendments must be made on the electronic document DICTATION DATE: 02/08/201527 COOK PICKLED MEAT: KINGSTON 02/08/201527 RPT#: [id number] DC DATE: STATUS: ADM IN [facility] [address] [place] [address] END OF REPORT
--- NOTE | 2020-02-08 16:49 | NUR ---
PT TO CT WITH CT STAFF, RT AND KICK PRESS OPERATOR
--- NOTE | 2020-02-08 17:08 | NUR ---
PT BACK FROM CT
--- NOTE | 2020-02-08 17:32 | NUR ---
CT RESULTS CALLED TO DR DE LA TORRE
--- NOTE | 2020-02-08 22:28 | NUR ---
PATIENT AWAKE RESTLESS IN BED. ASK PATIENT IF SHE WAS HURTING AND SHE SHOOK HER HEAD YES. PATIENT IS ABLE TO FOLLOW COMMANDS. PAIN MED GIVEN PER MD ORDER ON EMAR. WILL CONTINUE TO MONITOR PATIENT.
[2020-02-09] VITALS (29 sets, daily range): BP systolic 83–120; BP diastolic 46–78
[2020-02-09 06:53] LABS: BASOPHILS 0 % (0-2); EOSINOPHILS 0 % (0-7); HEMATOCRIT 31.7 % (36.0-48.0); HEMOGLOBIN 9.6 g/dL (12-16); IMMATURE GRANULOCYTES 0.4 % (0-5); LYMPHOCYTES 8.6 % (15-50); MCH 26.1 pg (26.0-34.0); MCHC 30.3 g/dL (31.0-37.0); MCV 86.1 fL (80.0-100.0); MEAN PLATELET VOLUME 8.9 fL (7.4-10.4); MONOCYTES 3.6 % (2-11); NEUTROPHILS 87.4 % (40-80); RBC 3.68 10x6/uL (4.00-5.40); RDW 17.2 % (11.5-14.5); WBC 8.3 10x3/uL (4.8-10.8)
[2020-02-09 07:03] LABS: PLATELET COUNT 194 10x3/uL (130-400)
[2020-02-09 07:21] LABS: ALBUMIN 1.7 g/dL (3.4-5.0); ALKALINE PHOSPHATASE 56 U/L (30-120); ALT (SGPT) 24 U/L (10-68); CALC OSMOLALITY 272 mosm/kg (275-300); CARBON DIOXIDE 20.1 mmol/L (21.0-32.0); CHLORIDE - SERUM 106 mmol/L (98-107); CREATININE - SERUM 0.6 mg/dL (0.6-1.3); FERRITIN 347 ng/mL (3-244); GLUCOSE 89 mg/dL (74-106); PHOSPHOROUS 3.9 mg/dL (2.5-4.9); POTASSIUM - SERUM 3.4 mmol/L (3.5-5.1); PROTEIN - SERUM 5.6 g/dL (6.4-8.2); SODIUM 136 mmol/L (136-145); eGFR NON AFRICAN AMERICAN > 90 mL/min (90-120)
[2020-02-09 07:22] LABS: UREA NITROGEN 19 mg/dL (7-18)
[2020-02-09 07:27] LABS: % SATURATION 9 % (15-55); IRON 15 ug/dl (35-150); TOTAL IRON BIND CAPACITY 157 ug/dl (260-445); UNSAT IRON BIND CAPACITY 142 ug/dl (150-375)
--- NOTE | 2020-02-09 07:31 | NUR ---
SHIFT REPORT RECEIVED. PT ON VENT A/C, TV 450, FIO 2 40%, PEEP 5. ETT SIZE 7.5 24 AT LIP RIGHT. AWAKENS TO VOICE. ATTEMPTED TO SIT UP. REORIENTED AT THIS TIME. FOLLOWS SIMPLE COMMANDS. RIGHT EYE BLOODY RED. RIJ WITH 1/2NS +20KCL INFUSING AT 100ML/HR, PROPOFOL INFUSING AT 30MCG/KG/MIN. HAS HUTCHINS WITH CLEAR CONCENTRATED YELLOW URINE NOTED. NO FEVER. L THIGH DRESSING C/D/I. SAFETY MEASURES IN PLACE. WILL CONTINUE TO MONITOR.
--- NOTE | 2020-02-09 09:34 | NUR ---
CALL RECEIVED FROM FANTA GREWAL. PASSCODE VERIFIED. BRIEF UPDATE GIVEN.
--- NOTE | 2020-02-09 10:12 | NUR ---
Nutrition Follow-up: POD 2 gamma nail L hip. Intubated. Sedated. Wt: 100.3# (02/07) No BMs recorded Labs noted: K+ 3.4, Ca 8.0, Alb 1.7 Meds noted: Solumedrol, Diprivan, KCl/0.5 NS @ 100, Lasix, electrolyte protocol -If pt remains intubated, rec initiate nutrition support within 24 hrs. -Monitor wt. -RD following.
--- NOTE | 2020-02-09 10:51 | NUR ---
ABG RESULTS REPORTED TO DR. ZACARIAS. ORDERS RECEIVED. NO FURTHER NEEDS AT THIS TIME.
--- NOTE | 2020-02-09 13:30 | NUR ---
16 FR OG TUBE PLACED AT AT THIS TIME. WAITING ON X-RAY TO VERIFY PLACEMENT.
--- NOTE | 2020-02-09 18:11 | MORECARE ---
CASE MANAGEMENT DISCHARGE SUMMARY PATIENT: MARY LOUIE UNIT: [id number] ADM DATE: 02/05/20 AGE: 69 : 50 SEX: F [facility] AUTHOR: YASMIN,DOC PHYSICIAN: REFERRING PHYSICIAN: PRISCILLA WALTERS MD DATE OF SERVICE: 02/09/20 Discharge Plan Patient Name: MARY LOUIE Facility: [facility]:[place] : 1950 Planned Disposition: Anticipated Discharge Date: Discharge Date: Expected LOS: Initial Reviewer: [email or web address] Initial Review Date: 02/07/2020 Generated: 02/09/20 7:10 pm Comments DCP- Discharge Planning Updated by [id number]: Jillian Lopez on 02/09/20 5:[address] CM attempted to call daughter again today [phone] a few times on different phones and still unable to get through still getting busy signal. DCP- Discharge Planning Updated by [email or web address]: Jillian Lopez on 02/08/20 2:[address] CM attempted to call patient's daughter again for discharge planning Fifi Barkley [phone] and also called patient's listed number [phone] and no voicemail set up. CM will continue to attempt to contact family. DCP- Discharge Planning Updated by [email or web address]: Jillian Lopez on 02/08/20 10:[address] Patient is currently on vent sedated. CM has attempted to call daughter Fifi Barkley [phone] multiple times this am and has gotten a busy signal each time. CM will continue to try to contact daughter for discharge planning. DCP- Discharge Planning Updated by [email or web address]: Jillian Lopez on 02/07/20 3:[address] CM attempted to see patient today regarding discharge planning / needs. Patient was in surgery at this time. CM will continue to follow and assist as needed with discharge planning. DCPIA - Discharge Planning Initial Assessment Updated by [id number]: Jillian Lopez on 02/07/20 4:39 pm * Is the patient Alert and Oriented? No * How many steps to enter\exit or inside your home? Last DP export: 02/08/20 2:29 p Patient Name: MARY LOUIE Page [id number] at 1811 All edits/amendments must be made on the electronic document DICTATION DATE: 02/09/201809 LINE CONSTRUCTION ENGINEER: KINGSTON 02/09/201809 RPT#: [id number] DC DATE: STATUS: ADM IN [facility] [address] [place] [address] END OF REPORT
--- NOTE | 2020-02-09 19:30 | NUR ---
ASSESSMENT COMPLETED, PT OPENS EYES TO STIMULI, FOLLOWS COMMANDS, ETT PATENT TO VENT, OGT CLAMPED, RIGHT IJ LINE INTACT WITH IVF INFUSING, BILAT SWR IN USE, RIGHT EYE EDEMATOUS AND BLOODY, HUTCHINS PATENT TO BSD, NO DISTRESS NOTED
--- NOTE | 2020-02-09 21:15 | NUR ---
PT RESTING QUIETLY WITH EYES CLOSED, VITALS STABLE
--- NOTE | 2020-02-09 23:15 | NUR ---
PT REMAINS ASLEEP WITHOUT DISTRESS, WILL CONT TO MONITOR
[2020-02-10] VITALS (35 sets, daily range): BP systolic 87–146; BP diastolic 51–102
[2020-02-10 05:20] LABS: BASOPHILS 0 % (0-2); EOSINOPHILS 0 % (0-7); HEMATOCRIT 34.1 % (36.0-48.0); HEMOGLOBIN 10.4 g/dL (12-16); IMMATURE GRANULOCYTES 0.3 % (0-5); LYMPHOCYTES 7.4 % (15-50); MCHC 30.5 g/dL (31.0-37.0); MCV 85.3 fL (80.0-100.0); MEAN PLATELET VOLUME 9.2 fL (7.4-10.4); MONOCYTES 5.3 % (2-11); PLATELET COUNT 219 10x3/uL (130-400); RDW 17.5 % (11.5-14.5)
[2020-02-10 05:36] LABS: WBC 11.6 10x3/uL (4.8-10.8)
[2020-02-10 05:42] LABS: CALC OSMOLALITY 282 mosm/kg (275-300); CALCIUM 8.5 mg/dL (8.5-10.1); CARBON DIOXIDE 20.1 mmol/L (21.0-32.0); CHLORIDE - SERUM 108 mmol/L (98-107); CREATININE - SERUM 0.6 mg/dL (0.6-1.3); GLUCOSE 129 mg/dL (74-106); MAGNESIUM - SERUM 2.2 mg/dL (1.8-2.4); SODIUM 139 mmol/L (136-145); UREA NITROGEN 21 mg/dL (7-18); eGFR NON AFRICAN AMERICAN > 90 mL/min (90-120)
--- NOTE | 2020-02-10 07:00 | NUR ---
RECEIVED BEDSIDE REPORT ON PATIENT AND ASSUMED CARE. PATIENT SEDATED ON VENT, EASILY AROUSED AND FOLLOWING COMMANDS, VSS. ETT - 7.5 AT 23 CM, SECURED, SPO2 - 99% ON VENT, SETTINGS ARE TV 450 A/C 14, PEEP OF 5 AND FIO2 - 35%. BBS - COARSE. OGT IN PLACE, VERIFIED VIA ASCULTATION AND RESIDUAL IS 10 ML. RATE 20 ML/HR OF PULMOCARE. IV TO RIGHT IJ INFUSING 1/2 NS WITH 20 MEQ OF KCL AT 100 ML/HR, IV 22 GA INFUSING PROPOFOL 35 MCG/KG/MIN (10.2 ML/HR). HUTCHINS CATH IN PLACE WITH 180 ML OF CLEAR YELLOW UOP NOTED. SCDS IN PLACE. INCISION DRESSING TO LEFT HIP CLEAN, DRY AND INTACT. BILATERAL WRIST RESTRAINTS IN PLACE. CM - SR RATE OF 94, WITH NO ECTOPY NOTED. RR - 18. PATIENT TURNED AND REPOSITIONED IN BED. HEAD TO TOE ASSESSMENT COMPLETED.
--- NOTE | 2020-02-10 08:36 | NUR ---
PATIENT RESTING QUIELTY ON VENT. VSS. TURNED AND REPOSITIONED IN BED.
--- NOTE | 2020-02-10 09:10 | NUR ---
PATIENT TURNED AND REPOSITIONED IN BED. VSS. MORNING MEDS PER MAR.
--- NOTE | 2020-02-10 09:25 | NUR ---
DR. DE LA TORRE AT ROOM UPDATED AND EXAMINES PATIENT.
--- NOTE | 2020-02-10 10:15 | NUR ---
SPOKE TO PATIENTS DAUGHTER FANTA VIA TELEPHONE UPDATED AND ANSWERED QUESTIONS.
--- NOTE | 2020-02-10 11:14 | NUR ---
REASSESSMENT COMPLETED. VSS. TURNED AND REPOSITIONED IN BED.
--- NOTE | 2020-02-10 13:12 | NUR ---
PATIENT TURNED AND REPOSITIONED IN BED. VSS.
--- NOTE | 2020-02-10 13:39 | NUR ---
PATIENT RESTING QUIETLY, EYES CLOSED, VSS.
--- NOTE | 2020-02-10 13:55 | NUR ---
DR. ZACARIAS AT ROOM UPDATED AND EXAMINES PATIENT. TO CONSULT ANESTHISIA FOR ART LINE PLACEMENT FOR BP AND ABG DRAWS. DC'D 1/2 NS WITH 20 MEQ OF KCL AND ORDERS 1/2 NS AT 50 ML/HR.
--- NOTE | 2020-02-10 14:01 | NUR ---
PAGED DR. SANTIAGO CHANNEL SALES MANAGER FOR ANESTHESIA REFERENCE CONSULT FOR CONSULT, TABITHA WITH ANESTHESIA CALLED BACK AND NOTIFIED OF CONSULT FOR ART LINE PLACEMENT.
--- NOTE | 2020-02-10 15:17 | NUR ---
REASSESSMETN COMPLETED. VSS. PATIENT RESTING QUIETLY. TURNED AND REPOSITIONED IN BED.
--- NOTE | 2020-02-10 15:39 | NUR ---
SPOKE TO PATIENTS DAUGHTER FANTA UPDATED AND ANSWERED QUESTIONS.
--- NOTE | 2020-02-10 17:15 | NUR ---
PER DIEM INTERPRETER PLACED ART LINE TO LEFT FA, LEVELED AND ZEROED.
--- NOTE | 2020-02-10 17:18 | NUR ---
PATIENT TURNED AND REPOSITIONED IN BED. VSS.
--- NOTE | 2020-02-10 19:30 | NUR ---
PT RESTING QIUETLY, SEDATED, AROUSES TO VOICE, ETT PATENT TO VENT, LUNGS WITH CRACKLES, RIGHT IJ LINE INTACT WITH IVF INFUSING, RIGHT FA PIV INTACT WITH PROPOFOL INFUSING, LEFT FA A-LINE INTACT AND ZEROED, DRSG INTACT TO LEFT HIP INCISION, HUTCHINS PATENT TO BSD, SCD'S TO BILAT LOWER LEGS, BILAT SWR IN USE, VITALS STABLE
--- NOTE | 2020-02-10 21:15 | NUR ---
PT REMAINS SEDATED WITH NO DISTRESS, WILL CONT TO MONITOR
--- NOTE | 2020-02-10 23:30 | NUR ---
PT AROUSES EASILY, ETT IN PLACE, ETT STARK CHANGED PER R.T. WITH ASSIST, PT TOLERATED WELL
[2020-02-11] VITALS (24 sets, daily range): BP systolic 92–132; BP diastolic 51–94
--- NOTE | 2020-02-11 01:00 | NUR ---
PT RESTING QUIETLY WITH NO CHANGES, VITALS STABLE
--- NOTE | 2020-02-11 03:15 | NUR ---
PT BATHED PER STAFF, DRESSING CHANGED TO LEFT HIP, PT TOLERATED WELL, VITALS STABLE
[2020-02-11 05:19] LABS: BASOPHILS 0.1 % (0-2); EOSINOPHILS 0.4 % (0-7); HEMATOCRIT 30.9 % (36.0-48.0); HEMOGLOBIN 9.5 g/dL (12-16); IMMATURE GRANULOCYTES 0.6 % (0-5); LYMPHOCYTES 15.9 % (15-50); MCH 26.1 pg (26.0-34.0); MCHC 30.7 g/dL (31.0-37.0); MCV 84.9 fL (80.0-100.0); MEAN PLATELET VOLUME 9.1 fL (7.4-10.4); MONOCYTES 8.4 % (2-11); NEUTROPHILS 74.6 % (40-80); PLATELET COUNT 196 10x3/uL (130-400); RBC 3.64 10x6/uL (4.00-5.40); RDW 18.1 % (11.5-14.5)
[2020-02-11 05:29] LABS: CALC OSMOLALITY 291 mosm/kg (275-300); CALCIUM 7.7 mg/dL (8.5-10.1); CARBON DIOXIDE 21.8 mmol/L (21.0-32.0); CHLORIDE - SERUM 111 mmol/L (98-107); CREATININE - SERUM 0.6 mg/dL (0.6-1.3); POTASSIUM - SERUM 3.6 mmol/L (3.5-5.1); SODIUM 142 mmol/L (136-145); UREA NITROGEN 23 mg/dL (7-18); eGFR NON AFRICAN AMERICAN > 90 mL/min (90-120)
[2020-02-11 05:32] LABS: GLUCOSE 186 mg/dL (74-106)
--- NOTE | 2020-02-11 05:32 | NUR ---
PT REMAINS SEDATED, NO CHANGES NOTED, WILL CONT TO MONITOR
--- NOTE | 2020-02-11 07:00 | NUR ---
RECEIVED BEDSIDE REPORT ON PATIENT AND ASSUMED CARE. PATIENT SEDATED ON VENT, RESTING QUIETLY, EASILY AROUSED BY VOICE AND FOLLOWS COMMANDS. CM - NSR RATE OF 72, OCCASSIONAL PAC NOTED. RR - 14, BBS - COARSE, SPO2 100%. VENT SETTINGS A/C 14, PEEP 5, TV - 450, FIO2 30%, ETT 7.5, 23 CM AT TEETH. RIGHT IJ IN PLACE INFUSING 1/2 NS AT 50 ML/HR, 22 GA RIGHT FA INFUSING PROPOFOL AT 40 MCG/KG/MIN (11.7 ML/HR). ART LINE TO LEFT FA, LEVELED AND ZEROED. HUTCHINS CATH IN PLACE WITH CLEAR YELLOW UOP NOTED. SCDS IN PLACE. HEAD TO TOE ASSESSMENT COMPLETED. PATIENT TURNED AND REPOSITIONED IN BED.
--- NOTE | 2020-02-11 09:12 | NUR ---
PATIENT RESTING QUIETLY ON VENT. VSS. MORNING MEDS PER NOV.
--- NOTE | 2020-02-11 09:53 | NUR ---
Nutrition Follow-up: Remains intubated/sedated. Receiving TF at goal rate. Diet: Pulmocare @ 40 mL/hr Wt: 115.7# (02/09); 100.3# (02/07); 114.6# (02/06) No BMs recorded Labs noted: Glu 186, Ca 7.7 Meds noted: 1/2NS @ 50, Solumedrol, Diprivan, MagOx, electrolyte protocol -TF managed by . -Monitor wt. -RD following.
--- NOTE | 2020-02-11 11:18 | CN ---
PATIENT NAME:MARY WALTON MEDICAL RECORD: [id number] : 50 LOCATION:[facility].CV02 ADMIT DATE: 02/05/20 ACCOUNT: [id number] CONSULTING PHYSICIAN: AMERICA MARIN MD REFERRING PHYSICIAN: PRISCILLA WALTERS MD DATE OF CONSULTATION: 02/07/2020 HISTORY: Ms. Walton is in with a hip fracture for repair. She was noted to have a right subconjunctival hemorrhage. I was asked to see her about that. She has significant dementia. She can follow commands and answer questions, but really no useful history from her. It seems like the conjunctival hemorrhage happened sometime after the fracture, but no history that they happened at the same time. She complains about some pain, but no pain around her eye or face. The nasal oxygen is bothering her. She has no complaints about her vision, no diplopia, no pain in the eye. PHYSICAL EXAMINATION: GENERAL: She is elderly. She has got some dementia, but she is able to follow commands. FACE: Normal and symmetric. No evidence of any injuries or abrasions or bruising on the face. Orbital rims, facial bones feel normal. No step-offs. No point tenderness. NOSE: Intranasal exam is a little bit dry with nasal oxygen. ORAL CAVITY AND OROPHARYNX: Again, little bit dry. EYES: The left eye is normal. The right eye, she has some subconjunctival hemorrhage. She can open and close the eye normally. Extraocular movements are intact. Her vision is equal bilaterally. Pupils are equal and small. I checked her visual acuity, roughly the same in both eyes. IMPRESSION: Right subconjunctival hemorrhage. No evidence of any other injury or problem. There is no subcutaneous air enophthalmos or exophthalmos or anything else going on, just looks like a simple subconjunctival hemorrhage. I have recommended giving some rewetting drops, discussed the other dryness issues she has. TRANSINT:[id number] Voice Confirmation ID: [id number] DOCUMENT ID: [id number] AMERICA MARIN MD at 1118 CC: [id number] DICTATION DATE: 02/07/20 1053 TOOL ROOM GEAR MACHINE OPERATOR: 02/07/20 1254 ADM IN [place] [place] [id number] [place] [address]
--- NOTE | 2020-02-11 12:37 | NUR ---
DRESSING TO LEFT HIP CHANGED, LINENS AND GOWN CHANGED. VSS. TURNED AND REPOSITIONED IN BED.
--- NOTE | 2020-02-11 13:13 | NUR ---
RT PLACED PATIENT BACK A/C, TOLERATED CPAP TRAIL, PROPOFOL GTT TURNED BACK ON.
--- NOTE | 2020-02-11 15:03 | NUR ---
OT NOTE: UNABLE TO PERFORM EVAL SECONDARY ON VENT. ELIZABETH DAWSON, OTR/L
--- NOTE | 2020-02-11 15:08 | NUR ---
REASSESSMENT COMPLETED. VSS. OGT PLACEMENT VERIFIED VIA ASCULTATION. TURNED AND REPOSITIONED IN BED.
--- NOTE | 2020-02-11 15:21 | NUR ---
Rehab Note- Acute Inpatient Rehab prescreen order received. Les patient is currently in ICU on vent. Has [employer] insurance- will require a PreAuth prior to an acute rehab stay. Has a pending PT & OT Eval for when extubated. Will continue to follow at this time. Thank you for this referral! Mayte Bond RN Clinical Liaison, [facility] Rehab
--- NOTE | 2020-02-11 15:55 | MORECARE ---
CASE MANAGEMENT DISCHARGE SUMMARY PATIENT: MARY LOUIE UNIT: [id number] ADM DATE: 02/05/20 AGE: 69 : 50 SEX: F [facility] AUTHOR: YASMIN,DOC PHYSICIAN: REFERRING PHYSICIAN: PRISCILLA WALTERS MD DATE OF SERVICE: 02/11/20 Discharge Plan Patient Name: MARY LOUIE Facility: [facility]:[place] : 1950 Planned Disposition: Inpatient Rehab Anticipated Discharge Date: Discharge Date: Expected LOS: Initial Reviewer: [email or web address] Initial Review Date: 02/07/2020 Generated: 02/11/20 4:55 pm DCP- Discharge Planning Updated by [id number]: Jillian Lopez on 02/09/20 5:[address] CM attempted to call daughter again today [phone] a few times on different phones and still unable to get through still getting busy signal. DCP- Discharge Planning Updated by [id number]: Jillian Lopez on 02/08/20 2:[address] CM attempted to call patient's daughter again for discharge planning Fifi Barkley [phone] and also called patient's listed number [phone] and no voicemail set up. CM will continue to attempt to contact family. DCP- Discharge Planning Updated by [email or web address]: Jillian Lopez on 02/08/20 10:[address] Patient is currently on vent sedated. CM has attempted to call daughter Fifi Barkley [phone] multiple times this am and has gotten a busy signal each time. CM will continue to try to contact daughter for discharge planning. DCP- Discharge Planning Updated by [email or web address]: Jillian Lopez on 02/07/20 3:[address] CM attempted to see patient today regarding discharge planning / needs. Patient was in surgery at this time. CM will continue to follow and assist as needed with discharge planning. DCPIA - Discharge Planning Initial Assessment Updated by [email or web address]: Jillian Lopez on 02/11/20 3:50 pm * Is the patient Alert and Oriented? No * How many steps to enter\exit or inside your home? * PCP [facility] * Pharmacy [facility] * Preadmission Environment Home with Family * ADLs Independent * Equipment Cane * List name and contact numbers for known caregivers / representatives who currently or will assist patient after discharge: FIFI BARKLEY - DAUGHTER - [phone] * Verbal permission to speak to the caregivers and representatives has been obtained from the patient. Yes * Community resources currently utilized Other * Please name any agencies selected above. [facility] - AIDE 2-3 HRS MWF, [facility] * Additional services required to return to the preadmission environment? No * Can the patient safely return to the preadmission environment? Yes * Has this patient been hospitalized within the prior 30 days at any hospital? No Last DP export: 02/09/20 5:11 p Patient Name: MARY LOUIE Page [phone] at 1551 All edits/amendments must be made on the electronic document DICTATION DATE: 02/11/201554 VALLEZ FILTER OPERATOR: KINGSTON 02/11/20 6030 RPT#: [id number] DC DATE: STATUS: ADM IN [facility] [address] [place] [address] END OF REPORT
--- NOTE | 2020-02-11 16:05 | MORECARE ---
CASE MANAGEMENT DISCHARGE SUMMARY PATIENT: MARY LOUIE UNIT: [id number] ADM DATE: 02/05/20 AGE: 69 : 50 SEX: F [facility] AUTHOR: YASMIN,DOC PHYSICIAN: REFERRING PHYSICIAN: PRISCILLA WALTERS MD DATE OF SERVICE: 02/11/20 Discharge Plan Patient Name: MARY LOUIE Facility: [facility]:[place] : 1950 Planned Disposition: Inpatient Rehab Anticipated Discharge Date: Discharge Date: Expected LOS: Initial Reviewer: [email or web address] Initial Review Date: 02/07/2020 Generated: 02/11/20 5:04 pm Comments DCP- Discharge Planning Updated by [email or web address]: Jillian Lopez on 02/11/20 2:[address] LATE ENTRY 02/10/20 Patient Name: MARY LOUIE Admission Status: ER Accout number: [id number] Admission Date: 02-05-2020 : 1950 Admission Diagnosis:PAIN IN LEFT HIP Attending: PRISCILLA WALTERS Current LOS: 5 Anticipated DC Date: Planned Disposition: Inpatient Rehab Primary Insurance: [employer] ADV Discharge Planning Comments: CM was able to contact daughter Fifi [phone] there was a different number listed in chart. CM emailed registration to please update number in system. CM spoke with patient's daughter to complete initial dc planning assessment. CM educated patient on the CM role and verbal consent given by patient to complete assessment. Patient lives at home with her daughter where she is independent with her care. At discharge patient's daughter would like for patient to have rehab prior to returning home. PANCHITO completed CM discussed availability of home health, rehab services, and medical equipment. Her daughter will be her horse and wagon driver home. Patient on has a cane / walking stick at home. Patient denied known discharge needs at this time. CM will continue to follow and will assist as needed with dc plans/needs. Property Technician: Jillian Lopez DCP- Discharge Planning Updated by [id number]: Jillian Lopez on 02/09/20 5:[address] CM attempted to call daughter again today [phone] a few times on different phones and still unable to get through still getting busy signal. DCP- Discharge Planning Updated by [email or web address]: Jillian Lopez on 02/08/20 2:[address] CM attempted to call patient's daughter again for discharge planning Fifi Barkley [phone] and also called patient's listed number [phone] and no voicemail set up. CM will continue to attempt to contact family. DCP- Discharge Planning Updated by [id number]: Jillian Lopez on 02/08/20 10:[address] Patient is currently on vent sedated. CM has attempted to call daughter Fifi Barkley [phone] multiple times this am and has gotten a busy signal each time. CM will continue to try to contact daughter for discharge planning. DCP- Discharge Planning Updated by [email or web address]: Jillian Lopez on 02/07/20 3:[address] CM attempted to see patient today regarding discharge planning / needs. Patient was in surgery at this time. CM will continue to follow and assist as needed with discharge planning. DCPIA - Discharge Planning Initial Assessment Updated by [id number]: Jillian Lopez on 02/11/20 3:50 pm * Is the patient Alert and Oriented? No * How many steps to enter\exit or inside your home? * PCP [facility] * Pharmacy [facility] * Preadmission Environment Home with Family * ADLs Independent * Equipment Cane * List name and contact numbers for known caregivers / representatives who currently or will assist patient after discharge: FIFI BARKLEY - DAUGHTER - [phone] * Verbal permission to speak to the caregivers and representatives has been obtained from the patient. Yes * Community resources currently utilized Other * Please name any agencies selected above. [facility] - AIDE 2-3 HRS MWF, [facility] * Additional services required to return to the preadmission environment? No * Can the patient safely return to the preadmission environment? Yes * Has this patient been hospitalized within the prior 30 days at any hospital? No Last DP export: 02/11/20 2:55 p Patient Name: MARY LOUIE Page 28400 at 1605 All edits/amendments must be made on the electronic document DICTATION DATE: 02/11/201604 BARIATRIC PHYSICIAN: DM 02/11/201604 RPT#: [id number] DC DATE: STATUS: ADM IN [facility] [address] [place] [address] END OF REPORT
--- NOTE | 2020-02-11 16:45 | NUR ---
LEFT HIP DRESSING CHANGED AND PAD REPLACED. PATIENT TURNED AND REPOSITIONED IN BED. VSS.
--- NOTE | 2020-02-11 18:16 | NUR ---
PATIENT GRIMACING AND HIGH PEAKING THE VENT, SYSTOLIC BP IN THE 150S, RESTLESS, GIVEN 2 MG VERSED PRN PER NOV.
--- NOTE | 2020-02-11 19:10 | NUR ---
REPORT RECEIVED INITIAL ASSESSMENT COMPLETE PT ORALLY INTUBATED AND SEDATED BUT OPENS EYES SPONTANEOUSLY FOLLOWS COMMANDS. SEE RT NOTES AND IV FLOWSHEET FOR DRIP CHANGES. CM READING SR WITHOUT ECTOPY ALARMS ON AND AUDIBLE. BED LOW POSITION SIDE RAILS UP TIMES 3 FOR SAFETY PT REPOSITIONED AND ORAL CARE PERFORMED CPOC
--- NOTE | 2020-02-11 19:30 | NUR ---
PT NODS HEAD TO QUESTION IF HIP HURTING MEDICATED PER EMAR WITH DILAUDID SEE EMAR. WILL MONITOR
--- NOTE | 2020-02-11 22:30 | NUR ---
PTS LEFT HIP DRESSINGS DRAINING THROUGH CLEANSED WITH NS AND REDRESSED
[2020-02-12] VITALS (24 sets, daily range): BP systolic 104–160; BP diastolic 57–98
--- NOTE | 2020-02-12 00:20 | NUR ---
PT NODS HEAD TO QUESTION OF PAIN MEDICATED WITH TYLENOL PER EMAR
--- NOTE | 2020-02-12 01:45 | NUR ---
PT RESTLESS HIGH VENT ALARM MEDICATED WITH VERSED PER EMAR
--- NOTE | 2020-02-12 02:20 | NUR ---
LEFT HIP DRESSINGS CHANGED AFTER WEEPING SEROUS FLUID THROUGH PARTIAL LINEN CHANGE AND BATH
--- NOTE | 2020-02-12 03:15 | NUR ---
BP UP COUGHING AGAINST VENT. NODS HEAD YES TO QUESTION OF PAIN MEDICATED WITH DILAUDID PER EMAR CPOC
[2020-02-12 05:06] LABS: BASOPHILS 0 % (0-2); EOSINOPHILS 0.7 % (0-7); HEMATOCRIT 33.2 % (36.0-48.0); HEMOGLOBIN 10.1 g/dL (12-16); IMMATURE GRANULOCYTES 1.1 % (0-5); LYMPHOCYTES 16.8 % (15-50); MCH 26.4 pg (26.0-34.0); MCHC 30.4 g/dL (31.0-37.0); NEUTROPHILS 72.4 % (40-80); PLATELET COUNT 175 10x3/uL (130-400); RBC 3.82 10x6/uL (4.00-5.40); RDW 18.6 % (11.5-14.5)
[2020-02-12 05:07] LABS: MCV 86.9 fL (80.0-100.0)
--- NOTE | 2020-02-12 05:07 | NUR ---
RESP CULTURE SPECIMEN OBTAINED PER RT SENT TO LAB
[2020-02-12 05:16] LABS: CALC OSMOLALITY 291 mosm/kg (275-300); CALCIUM 7.6 mg/dL (8.5-10.1); CARBON DIOXIDE 27.2 mmol/L (21.0-32.0); CHLORIDE - SERUM 111 mmol/L (98-107); CREATININE - SERUM 0.6 mg/dL (0.6-1.3); POTASSIUM - SERUM 3.4 mmol/L (3.5-5.1); SODIUM 144 mmol/L (136-145); UREA NITROGEN 20 mg/dL (7-18); eGFR NON AFRICAN AMERICAN > 90 mL/min (90-120)
[2020-02-12 05:18] LABS: GLUCOSE 128 mg/dL (74-106)
--- NOTE | 2020-02-12 06:00 | NUR ---
COMPLETE CHG BATH AND LINEN CHANGE LEFT HIP DRESSING CHANGED WITH GAUZE AND TAPE. REPOSITIONED
--- NOTE | 2020-02-12 07:00 | NUR ---
AWAKES EASILY TO VERBAL STIMULI. MAKES EYE CONTACT. OBEYS COMMANDS. BILATERAL LUNG SOUNDS EQUAL ETT SECURE TO VENT. NG INFUSING WITH PULMOCARE AT 40 ML HOUR. 5 CC RESIDUAL NOTED. CHECKED FOR PLACE WITH AIR BOLUS, AUDIBLE IN ABD. SCD ON LOWER LEGS WORKING. HUTCHINS CATH PATENT DRAINING CLEAR HARJEET URINE. IV RIJ INFUSING WITH 1/2 NS AT 50 ML HOUR. RIGHT FOREARM IV INFUSING WITH DIPRIVAN AT 40 MCQ KG MIN. ABD SOFT. NO DISTRESS NOTED. MONITOR SR.
--- NOTE | 2020-02-12 09:00 | NUR ---
DR. DE LA TORRE HERE. RIGHT EYE STILL SWOLLEN AND RED. HEAD OF BED ELEVATED 30 DEGREES. HEELS BRIDGED ON PILLOW. NO DISTRESS RESTING COMFORTABLY.
--- NOTE | 2020-02-12 10:30 | NUR ---
COMPLETE BED BATH GIVEN WIT HUTCHINS CATH CARE. OLD DRIED BLOOD IN GROIN AREA. COCCYX RED BUT BLANCHES. MEDIPLEX DRESSING APPLIED. PATIENT STATES HE CAN LAY ON RIGHT SIDE. LEFT LOWER LEG PAIN TO TOUCH. DENIES SHORTNESS OF BREATH. TOLERATED BATH WELL. RIGHT GROIN DRESSING DRY AND INTACT. SITE SOFT. SMALL BRUISE NOTED.
--- NOTE | 2020-02-12 10:55 | NUR ---
DIPRIVAN TURNED DOWN TO 20 MEQ KG MIN. PATIENT PLACED ON CPAP TRAIL PER R.T. TOLERATING WELL.
--- NOTE | 2020-02-12 11:43 | MORECARE ---
CASE MANAGEMENT DISCHARGE SUMMARY PATIENT: MARY LOUIE UNIT: [id number] ADM DATE: 02/05/20 AGE: 69 : 50 SEX: F [facility] AUTHOR: YASMIN,DOC PHYSICIAN: REFERRING PHYSICIAN: PRISCILLA WALTERS MD DATE OF SERVICE: 02/12/20 Discharge Plan Patient Name: MARY LOUIE Facility: [facility]:[place] : 1950 Planned Disposition: Inpatient Rehab Anticipated Discharge Date: Discharge Date: Expected LOS: Initial Reviewer: [email or web address] Initial Review Date: 02/07/2020 Generated: 02/12/20 12:42 pm Comments DCP- Discharge Planning Updated by [email or web address]: Yaneth Schuler on 02/12/20 10:[address] Received an order for possible ophthalmology consult. I spoke with Janice, general warehouse associate, and she does not know if they round in our hospital. I called ED per Janice's recommendation to see if they had ophthalmology pharmaceutical salesperson. Dr. Gonzalez is pharmaceutical salesperson and I have paged him to my number. Pager number is [phone]. CM will continue to follow and assist with discharge planning/needs. DCP- Discharge Planning Updated by [email or web address]: Jillian Lopez on 02/11/20 2:[address] LATE ENTRY 02/10/20 Patient Name: MARY LOUIE Admission Status: ER Accout number: [id number] Admission Date: 02-05-2020 : 1950 Admission Diagnosis:PAIN IN LEFT HIP Attending: PRISCILLA WALTERS Current LOS: 5 Anticipated DC Date: Planned Disposition: Inpatient Rehab Primary Insurance: [employer] ADV Discharge Planning Comments: CM was able to contact daughter Fanta [phone] there was a different number listed in chart. CM emailed registration to please update number in system. CM spoke with patient's daughter to complete initial dc planning assessment. CM educated patient on the CM role and verbal consent given by patient to complete assessment. Patient lives at home with her daughter where she is independent with her care. At discharge patient's daughter would like for patient to have rehab prior to returning home. PANCHITO completed CM discussed availability of home health, rehab services, and medical equipment. Her daughter will be her package delivery driver home. Patient on has a cane / walking stick at home. Patient denied known discharge needs at this time. CM will continue to follow and will assist as needed with dc plans/needs. Quartz Orientator: Jillian Lopez DCP- Discharge Planning Updated by [email or web address]: Jillian Lopez on 02/09/20 5:[address] CM attempted to call daughter again today [phone] a few times on different phones and still unable to get through still getting busy signal. DCP- Discharge Planning Updated by [email or web address]: Jillian Lopez on 02/08/20 2:[address] CM attempted to call patient's daughter again for discharge planning Fanta Barkley [phone] and also called patient's listed number [phone] and no voicemail set up. CM will continue to attempt to contact family. DCP- Discharge Planning Updated by [email or web address]: Jillian Lopez on 02/08/20 10:[address] Patient is currently on vent sedated. CM has attempted to call daughter Fanta Barkley [phone] multiple times this am and has gotten a busy signal each time. CM will continue to try to contact daughter for discharge planning. DCP- Discharge Planning Updated by [email or web address]: Jillian Lopez on 02/07/20 3:[address] CM attempted to see patient today regarding discharge planning / needs. Patient was in surgery at this time. CM will continue to follow and assist as needed with discharge planning. DCPIA - Discharge Planning Initial Assessment Updated by [email or web address]: Jillian Lopez on 02/11/20 3:50 pm * Is the patient Alert and Oriented? No * How many steps to enter\exit or inside your home? * PCP [facility] * Pharmacy [facility] * Preadmission Environment Home with Family * ADLs Independent * Equipment Cane * List name and contact numbers for known caregivers / representatives who currently or will assist patient after discharge: FANTA BARKLEY - DAUGHTER - [phone] * Verbal permission to speak to the caregivers and representatives has been obtained from the patient. Yes * Community resources currently utilized Other * Please name any agencies selected above. [facility] - AIDE 2-3 HRS MWF, [facility] * Additional services required to return to the preadmission environment? No * Can the patient safely return to the preadmission environment? Yes * Has this patient been hospitalized within the prior 30 days at any hospital? No Last DP export: 02/11/20 3:05 p Patient Name: MARY LOUIE Page 30259 at 1143 All edits/amendments must be made on the electronic document DICTATION DATE: 02/12/20 114 BRANCH STORE MANAGER: KINGSTON 02/12/20 1142 RPT#: [id number] DC DATE: STATUS: ADM IN [facility] [address] [place] [address] END OF REPORT
--- NOTE | 2020-02-12 12:09 | MORECARE ---
CASE MANAGEMENT DISCHARGE SUMMARY PATIENT: MARY LOUIE UNIT: [id number] ADM DATE: 02/05/20 AGE: 69 : 50 SEX: F [facility] AUTHOR: YASMIN,DOC PHYSICIAN: REFERRING PHYSICIAN: PRISCILLA WALTERS MD DATE OF SERVICE: 02/12/20 Discharge Plan Patient Name: MARY LOUIE Facility: [facility]:[place] : 1950 Planned Disposition: Inpatient Rehab Anticipated Discharge Date: Discharge Date: Expected LOS: Initial Reviewer: [email or web address] Initial Review Date: 02/07/2020 Generated: 02/12/20 1:08 pm Comments DCP- Discharge Planning Updated by [id number]: Yaneth Schuler on 02/12/20 11:[address] Gonzalez returned my call and I informed him of the consult. He states he will see the patient today. I called patient's primary nurse, Rosalee, and informed her that I spoke with Dr. Gonzalez. CM will continue to follow and assist with discharge planning/needs. DCP- Discharge Planning Updated by [id number]: Yaneth Schuler on 02/12/20 10:[address] Received an order for possible ophthalmology consult. I spoke with Janice, director housekeeping, and she does not know if they round in our hospital. I called ED per Janice's recommendation to see if they had ophthalmology pressurization mechanic. Dr. Gonzalez is pressurization mechanic and I have paged him to my number. Pager number is [phone]. CM will continue to follow and assist with discharge planning/needs. DCP- Discharge Planning Updated by [id number]: Jillian Lopez on 02/11/20 2:[address] LATE ENTRY 02/10/20 Patient Name: MARY LOUIE Admission Status: ER Accout number: [id number] Admission Date: 02-05-2020 : 1950 Admission Diagnosis:PAIN IN LEFT HIP Attending: PRISCILLA WALTERS Current LOS: 5 Anticipated DC Date: Planned Disposition: Inpatient Rehab Primary Insurance: [employer] ADV Discharge Planning Comments: CM was able to contact daughter Fanta [phone] there was a different number listed in chart. CM emailed registration to please update number in system. CM spoke with patient's daughter to complete initial dc planning assessment. CM educated patient on the CM role and verbal consent given by patient to complete assessment. Patient lives at home with her daughter where she is independent with her care. At discharge patient's daughter would like for patient to have rehab prior to returning home. PANCHITO completed CM discussed availability of home health, rehab services, and medical equipment. Her daughter will be her medical delivery driver home. Patient on has a cane / walking stick at home. Patient denied known discharge needs at this time. CM will continue to follow and will assist as needed with dc plans/needs. Director Critical Care: Jillian Lopez DCP- Discharge Planning Updated by [email or web address]: Jillian Lopez on 02/09/20 5:[address] CM attempted to call daughter again today [phone] a few times on different phones and still unable to get through still getting busy signal. DCP- Discharge Planning Updated by [email or web address]: Jillian Lopez on 02/08/20 2:[address] CM attempted to call patient's daughter again for discharge planning Fanta Barkley [phone] and also called patient's listed number [phone] and no voicemail set up. CM will continue to attempt to contact family. DCP- Discharge Planning Updated by [email or web address]: Jillian Lopez on 02/08/20 10:[address] Patient is currently on vent sedated. CM has attempted to call daughter Fanta Barkley [phone] multiple times this am and has gotten a busy signal each time. CM will continue to try to contact daughter for discharge planning. DCP- Discharge Planning Updated by [email or web address]: Jillian Lopez on 02/07/20 3:[address] CM attempted to see patient today regarding discharge planning / needs. Patient was in surgery at this time. CM will continue to follow and assist as needed with discharge planning. DCPIA - Discharge Planning Initial Assessment Updated by [email or web address]: Jillian Lopez on 02/11/20 3:50 pm * Is the patient Alert and Oriented? No * How many steps to enter\exit or inside your home? * PCP [facility] * Pharmacy [facility] * Preadmission Environment Home with Family * ADLs Independent * Equipment Cane * List name and contact numbers for known caregivers / representatives who currently or will assist patient after discharge: FANTA BARKLEY - DAUGHTER - [phone] * Verbal permission to speak to the caregivers and representatives has been obtained from the patient. Yes * Community resources currently utilized Other * Please name any agencies selected above. [facility] - AIDE 2-3 HRS MWF, [facility] * Additional services required to return to the preadmission environment? No * Can the patient safely return to the preadmission environment? Yes * Has this patient been hospitalized within the prior 30 days at any hospital? No Last DP export: 02/12/20 10:43 a Patient Name: MARY LOUIE Page 31602 at 1209 All edits/amendments must be made on the electronic document DICTATION DATE: 02/12/201207 OUTPATIENT THERAPIST: KINGSTON 02/12/201207 RPT#: [id number] DC DATE: STATUS: ADM IN [facility] [address] [place] [address] END OF REPORT
--- NOTE | 2020-02-12 12:50 | NUR ---
EXTUBATED PLACED ON 4 LITERS NC. OG PULLED. TUBE FEEDING OFF SINCE 1000. TOLERAED WELL.
--- NOTE | 2020-02-12 13:15 | NUR ---
DR. CABELLO HERE TO CHECK PATIENTS RIGHT EYE. PATIENT TOLERATED POORLY. NO RESP DISTRESS.
--- NOTE | 2020-02-12 15:25 | NUR ---
WATCHING TV NAPPING AT INTERVALS, TALKING ABOUT GOING HOME NO RESP DISTRESS. TAKING ICE CHIPS TOLERATING NO COUGHING OR CHOKING NOTED. ORAL CARE DONE.
--- NOTE | 2020-02-12 17:00 | NUR ---
REPOSITIONED FREQ. PULLED IN BED FREQ. DIFFICULTY TO UNDERSTAND. NO RESP DISTRESS. RESP DEEP AND REGULAR. HUTCHINS CATH CARE DONE. DRESSING LEFT HIP DRY AND INTACT
--- NOTE | 2020-02-12 19:00 | NUR ---
PT ASSESSMENT COMPLETED AT THIS TIME, NO CHANGES NOTED FROM NURSE REPORT, PT AWAKE AND ALERT, PT ASKING ABOUT HER MEDICINE, PT WAS INFORMED THAT THE NURSE WOULD REVIEW HER CHART AND CHECK ON WHAT MEDICINE SHE WAS GETTING, VSS, WILL MONITOR FOR CHANGES
--- NOTE | 2020-02-12 21:08 | NUR ---
PT GIVEN PO MEDS AT THIS TIME, PT TOOK MEDS WITHOUT DIFFCULITY, PT ASKING ABOUT HER OTHER MEDICINE, PT WAS INFORMED THAT WAS ALL SHE HAD ORDERED AT THIS TIME
--- NOTE | 2020-02-12 23:00 | NUR ---
PT REASSESSMENT COMPLETED AT THIS TIME. NO CHANGES NOTED FROM PREVIOUS EXAM, VSS, WILL MONITOR FOR CHANGES
[2020-02-13] VITALS (17 sets, daily range): BP systolic 117–157; BP diastolic 67–98
--- NOTE | 2020-02-13 01:00 | NUR ---
PT RESTING IN THE BED WITH EYES CLOSED,RESP EVEN AND NON LABORED, NO DISTRESS NOTED
--- NOTE | 2020-02-13 03:00 | NUR ---
PT REASSESSMENT COMPLETED AT THIS TIME, NO CHANGES NOTED FROM PREVIOUS EXAM, VSS, WILL MONITOR FOR CHANGES
--- NOTE | 2020-02-13 05:00 | NUR ---
PT RESTING IN BED GETTING UPDRAFT TREATMENT, NO DISTRESS NOTED, VSS
[2020-02-13 05:36] LABS: BASOPHILS 0.2 % (0-2); HEMATOCRIT 34.9 % (36.0-48.0); HEMOGLOBIN 10.4 g/dL (12-16); LYMPHOCYTES 26.4 % (15-50); MCH 26.2 pg (26.0-34.0); MCHC 29.8 g/dL (31.0-37.0); MCV 87.9 fL (80.0-100.0); MEAN PLATELET VOLUME 9.4 fL (7.4-10.4); MONOCYTES 8.5 % (2-11); NEUTROPHILS 61.9 % (40-80); PLATELET COUNT 195 10x3/uL (130-400); RBC 3.97 10x6/uL (4.00-5.40); RDW 18.7 % (11.5-14.5); WBC 8.1 10x3/uL (4.8-10.8)
[2020-02-13 06:03] LABS: ALKALINE PHOSPHATASE 82 U/L (30-120); ALT (SGPT) 45 U/L (10-68); BILIRUBIN - TOTAL 0.42 mg/dL (0.2-1.3); CALCIUM 8.1 mg/dL (8.5-10.1); CHLORIDE - SERUM 110 mmol/L (98-107); CREATININE - SERUM 0.5 mg/dL (0.6-1.3); PROTEIN - SERUM 5.7 g/dL (6.4-8.2); SODIUM 143 mmol/L (136-145); eGFR NON AFRICAN AMERICAN > 90 mL/min (90-120)
[2020-02-13 06:04] LABS: CALC OSMOLALITY 282 mosm/kg (275-300); GLUCOSE 68 mg/dL (74-106); POTASSIUM - SERUM 3.2 mmol/L (3.5-5.1); UREA NITROGEN 13 mg/dL (7-18)
--- NOTE | 2020-02-13 06:21 | NUR ---
PT GIVEN POTASSIUM MIXED WITH OJ DUE TO LOW POTASSIUM AND GLUCOSE 68
--- NOTE | 2020-02-13 07:54 | NUR ---
PT AWAKE AND ORIENTED. DENIES PAIN EXCEPT WITHM REPOSITIONING. VSS.
--- NOTE | 2020-02-13 10:19 | NUR ---
ASSISTED WITH BREAKFAST TRAY. PT ATE 10% OF MEAL TRAY WITH TOTAL ASST. PT SAT PT ON SIDE OF BED. PT SAT FOR APPROX 4MIN. PT LAZ WELL.
--- NOTE | 2020-02-13 19:00 | NUR ---
PT ASSESSMENT COMPLETED AT THIS TIME, NO CHANGES NOTED FROM NURSE REPORT, PT AAOX 3, VSS
--- NOTE | 2020-02-13 21:10 | NUR ---
TEMP WAS RECHECKED AT THIS TIME, 98.7 ORAL
--- NOTE | 2020-02-13 23:00 | NUR ---
Patient reassessment complete at this time, no change noted from previous exam. Vital signs stable, will continue to monitor for changes.
[2020-02-14] VITALS (15 sets, daily range): BP systolic 100–146; BP diastolic 68–89
--- NOTE | 2020-02-14 01:00 | NUR ---
PT RESTING WOTH EYES CLOSED, RESP EVEN AND NON LABORED, VSS
--- NOTE | 2020-02-14 03:00 | NUR ---
Patient reassessment complete this time, no changes noted from previous exam. Vital signs stable, will continue monitor for changes.
--- NOTE | 2020-02-14 05:00 | NUR ---
Patient resting with eyes closed, respirations even nonlabored. Vital signs stable at this time, will continue to monitor for changes.
--- NOTE | 2020-02-14 05:50 | NUR ---
PT GIVEN CHG BATH WITH COMPLETE LINEN CHANGED, PT WAS ABLE TO ROLL FROM SIDE TO SIDE WITH MINIMUM ASSISSTANCE
[2020-02-14 06:05] LABS: BASOPHILS 0.1 % (0-2); EOSINOPHILS 1.6 % (0-7); HEMATOCRIT 36.4 % (36.0-48.0); HEMOGLOBIN 10.8 g/dL (12-16); IMMATURE GRANULOCYTES 3.4 % (0-5); LYMPHOCYTES 22.5 % (15-50); MCH 26.3 pg (26.0-34.0); MCHC 29.7 g/dL (31.0-37.0); MCV 88.6 fL (80.0-100.0); MEAN PLATELET VOLUME 9.9 fL (7.4-10.4); MONOCYTES 11.2 % (2-11); NEUTROPHILS 61.2 % (40-80); PLATELET COUNT 234 10x3/uL (130-400); RBC 4.11 10x6/uL (4.00-5.40); RDW 18.8 % (11.5-14.5); WBC 8.1 10x3/uL (4.8-10.8)
[2020-02-14 06:13] LABS: ALKALINE PHOSPHATASE 86 U/L (30-120); ALT (SGPT) 39 U/L (10-68); CALCIUM 8.1 mg/dL (8.5-10.1); CARBON DIOXIDE 30.7 mmol/L (21.0-32.0); CHLORIDE - SERUM 107 mmol/L (98-107); CREATININE - SERUM 0.6 mg/dL (0.6-1.3); PROTEIN - SERUM 5.6 g/dL (6.4-8.2); SODIUM 141 mmol/L (136-145); UREA NITROGEN 13 mg/dL (7-18); eGFR NON AFRICAN AMERICAN > 90 mL/min (90-120)
[2020-02-14 06:16] LABS: CALC OSMOLALITY 278 mosm/kg (275-300); GLUCOSE 67 mg/dL (74-106); POTASSIUM - SERUM 3.4 mmol/L (3.5-5.1)
--- NOTE | 2020-02-14 07:00 | NUR ---
RECEVIVED BEDSIDE REPORT ON PATIENT AND ASSUMED CARE. PATIENT RESTING QUIETLY, EYES CLOSED EASILY AROUSED BY VOICE. ALERT AND ORIENTED X 4. LEFT HIP DRESSING C/D/I, +2 PULSE TO LEFT DP. CM - SR, RATE 85, NO ECTOPY NOTED. SPO2 - 98% ON 2 LPM O2 VIA NC, BBS CLEAR AND EQUAL. RIGHT IJ CVL INFUSING 1/2 NS AT 50 ML/HR. HUTCHINS CAT WITH 270 ML OF CLEAR YELLOW UOP NOTED. HEAD TO TOE ASSESSMENT COMPLETED. REPOSITIONED IN BED.
--- NOTE | 2020-02-14 08:31 | NUR ---
PATIENT ASSISTED WITH BREAKFAST ATE APPROXIMATELY 50%. MORNING MEDS PER NOV. VSS. NO NEEDS AT THIS TIME.
--- NOTE | 2020-02-14 09:21 | NUR ---
DR. LYNCH AT ROOM UPDATED AND EXAMINES PATIENT.
--- NOTE | 2020-02-14 09:54 | NUR ---
Nutrition Follow-up: Extubated 02/11. Ate ~50% of breakfast this AM. Agreed to try strawberry Ensure with lunch today. Diet: Regular, Mech Soft PO intake: 22% avg x 3 meals Wt: 123.4# (02/13); 117# (02/10); 114.6# (02/06) No BMs recorded; nursing reports active BS x 4 Labs noted: K+ 3.4, Glu 67, Ca 8.1, Alb 2.0 Meds noted: Prednisone, Protonix, 1/2NS @ 50, Lasix, MagOx, electrolyte protocol -Encourage PO intake and honor food preferences within diet restrictions. -Will send strawberry Ensure with lunch today for pt trial. -Monitor wt. -RD following.
--- NOTE | 2020-02-14 10:26 | NUR ---
Shay+ DRAWN AND SENT TO LAB.
--- NOTE | 2020-02-14 10:49 | NUR ---
REASSESSMENT COMPLETED. VSS. TURNED AND REPOSITIONED IN BED.
--- NOTE | 2020-02-14 11:08 | NUR ---
PATIENT UP TO BEDSIDE CHAIR WITH ASSIST BY PT.
--- NOTE | 2020-02-14 11:11 | OP ---
PATIENT NAME: MARY LOUIE MEDICAL RECORD: [id number] :[birth year] LOCATION:[facility] ADMISSION DATE:02/05/20 SURGEON: ERIBERTO REDDING MD DATE OF OPERATION: 02/07/2020 PREOPERATIVE DIAGNOSIS: Left intertrochanteric hip fracture. POSTOPERATIVE DIAGNOSIS: Left intertrochanteric hip fracture. PROCEDURE: Cephalomedullary fixation of left intertrochanteric hip fracture - gamma nail. SURGEON: Eriberto Redding MD CARTRIDGE GAUGER: JONAS Rinaldi INTRAOPERATIVE COMPLICATIONS: None. SUMMARY OF PATHOLOGIC FINDINGS: The patient was indeed found to have displaced intertrochanteric hip fracture that reduced nicely and was fixated anatomically. OPERATIVE SUMMARY IN DETAIL: After obtaining the appropriate preoperative orthopedic surgery consent as well as anesthetic consultation, evaluation and clearance, the patient was brought to the operating room and placed on the operating table in a supine position. After adequate general endotracheal anesthesia was administered, the patient was placed on the fracture table. The right leg was placed in the well leg chavez, left leg was placed in the traction boot. She was secured firmly to the fracture table using the belt and sheet tape system. Under direct fluoroscopy, the left hip was reduced. The left hip was then prepped and draped in routine sterile fashion. Appropriate timeout was taken and agreed upon by all given the patient's unique identifiers. Incision was made at the superior aspect of the greater trochanter. A guide hole was created with the awl, ball-tipped guidewire was passed. Proximal reaming was then followed by insertion of the nail to the appropriate depth. The compression screw was placed on AP and lateral fluoroscopic planes to the appropriate position. Measurements were taken. Reaming was then followed by placement of the compression screw. After the compression screw was the appropriate depth, the rotational screw was put into place and allowed for compression without rotation. Compression was then placed across the fracture. Distal interlocking screw was put in under fluoroscopic guidance using distal interlocking targeting device. Having completed this, final radiographs were taken and submitted for radiologist review. Wounds were irrigated and closed with #1 Vicryl, 2-0 Vicryl and skin katie by JONAS Rinaldi. Sterile dressings were applied. The patient remained intubated and was sent back to the [facility] ICU in stable, but guarded condition. TRANSINT:[id number] Voice Confirmation ID: [id number] DOCUMENT ID: [id number] OPERATIVE REPORT [id number] MARY LOUIE MD, ERIBERTO BRODY at 1111 CC: [id number] DICTATION DATE: 02/10/20 1040 INVESTIGATIONS MANAGER: 02/10/20 1708 ADM IN [place] [id number] [place] [id number]
--- NOTE | 2020-02-14 11:30 | NUR ---
PATIENT GIVEN LUNCH TRAY AND ASSISTED WITH LUNCH.
--- NOTE | 2020-02-14 11:45 | NUR ---
DR. WALTERS AT ROOM UPDATED AND EXAMINES PATIENT. OK TO TRANSFER TO REGULAR ROOM.
--- NOTE | 2020-02-14 11:53 | NUR ---
PT HAS BLANCHABLE REDNESS ON BUTTOCKS. MEPILEX DRESSING BEING USED FOR PROTECTION OF SACRUM/COCCYX/BUTTOCKS. SHE IS BEING TURNED/REPOSITIONED Q 2 HOURS. LEFT HIP INCISION INTACT. AIR OVERLAY MATTRESS HAS BEEN ORDERED FOR FURTHER PROTECTION. WOUND CARE WILL CONTINUE MONITORING.
--- NOTE | 2020-02-14 12:00 | NUR ---
SPOKE TO PATIENTS DAUGHTERFANTA VIA TELEPHONE, UPDATED AND QUESTIONS ANSWERED.
--- NOTE | 2020-02-14 12:27 | NUR ---
CALLED REPORT TO NEON INSTALLER BEKA, PATIENT TO TRANSFER TO ROOM 2214. CALLED PATIENTS DAUGHTER FANTA AND NOTIFIED OF TRANSFER AND ROOM NUMBER. VSS.
--- NOTE | 2020-02-14 12:29 | NUR ---
PATIENT TRANSFERED TO ROOM 2214 ON PORTABLE 02 AT 2 LPM VIA BED. VSS.
--- NOTE | 2020-02-14 13:30 | NUR ---
PATIENT TO ROOM WITH IV INTACT. NO COMPLAINTS OR SIGNS OF DISTRESS. O2 ON. CALL LIGHT WITHIN REACH. ORIENTED TO ROOM AND CALL LIGHT.
--- NOTE | 2020-02-14 14:00 | NUR ---
AGREE WITH ASSESSMENT FROM ICU NURSE EARLIER. PATIENT RECIEVED LUBRICANT FOR RIGHT EYE. IV INTACT. NO COMPLAINTS OR SIGNS OF DISTRESS. CALL LIGHT WITHIN REACH.
--- NOTE | 2020-02-14 16:31 | NUR ---
PATIENT IN BED WITH IV INTACT. NOC MPLAINTS OR SIGNS OF DISTRESS. CALL LIGHT WITHIN REACH.
--- NOTE | 2020-02-14 18:31 | NUR ---
PATIENT WAITING FOR SOMETHING FOR THROAT. WAITING FOR ONCALL PHYSICIAN AT THIS TIME. PATIENT IV INTACT. CALL LIGHT ENID WRIGHT.
[2020-02-15 01:30] VITALS: BP 120/68
--- NOTE | 2020-02-15 01:32 | NUR ---
ALERT AND ORENTED ABLE TO VOICE NEEDS AND WANTS TO STAFF. WATER AND CALL LIGHT IN REACH CHECKED OFTEN FOR NEEDS AND SAFETY.
[2020-02-15 06:27] VITALS: BP 162/85
[2020-02-15 08:00] VITALS: BP 157/86
--- NOTE | 2020-02-15 09:31 | NUR ---
REFUSING TO EAT BREAKFAST THIS AM. STATES SHE DOESNT FEEL LIKE EATING.
[2020-02-15 10:50] LABS: BASOPHILS 0.3 % (0-2); EOSINOPHILS 0.8 % (0-7); IMMATURE GRANULOCYTES 4.4 % (0-5); MCH 26.8 pg (26.0-34.0); MCHC 29.6 g/dL (31.0-37.0); MEAN PLATELET VOLUME 9.5 fL (7.4-10.4); MONOCYTES 10.2 % (2-11); NEUTROPHILS 63.3 % (40-80); PLATELET COUNT 253 10x3/uL (130-400); RDW 19.2 % (11.5-14.5); WBC 7.3 10x3/uL (4.8-10.8)
[2020-02-15 10:52] LABS: HEMATOCRIT 45.3 % (36.0-48.0); HEMOGLOBIN 13.4 g/dL (12-16)
[2020-02-15 10:53] LABS: MCV 90.6 fL (80.0-100.0)
[2020-02-15 10:55] LABS: ALBUMIN 2.5 g/dL (3.4-5.0); ALKALINE PHOSPHATASE 105 U/L (30-120); ALT (SGPT) 45 U/L (10-68); BILIRUBIN - TOTAL 0.54 mg/dL (0.2-1.3); CALC OSMOLALITY 277 mosm/kg (275-300); CALCIUM 8.4 mg/dL (8.5-10.1); CARBON DIOXIDE 30.1 mmol/L (21.0-32.0); CHLORIDE - SERUM 101 mmol/L (98-107); CREATININE - SERUM 0.6 mg/dL (0.6-1.3); GLUCOSE 87 mg/dL (74-106); SODIUM 139 mmol/L (136-145); UREA NITROGEN 14 mg/dL (7-18); eGFR NON AFRICAN AMERICAN > 90 mL/min (90-120)
[2020-02-15 10:56] LABS: POTASSIUM - SERUM 3.7 mmol/L (3.5-5.1)
[2020-02-15 12:00] VITALS: BP 176/98
--- NOTE | 2020-02-15 12:30 | NUR ---
PATIENT NOT EATING AGAIN. STATES SHE DOESNT FEEL LIKE IT BECAUSE HER THROAT AND HER MOUTH HURTS. DRANK SMALL AMOUNT OF ENSURE. IV INTACT. WILL CONTINUE TO MONITOR. CALL LIGHT WITHIN REACH.
--- NOTE | 2020-02-15 13:15 | NUR ---
PATIENT CHANGED AND REPOSITIONED. CATHETER REMOVED AT THIS TIME BY LEXIE MCCARTY. PATIENT WANTING CATHETER OUT. HAS HAD IN SINCE SURGERY. PATIENT COMPLAINING ABOUT THROAT AND MOUTH HURTING. GAVE THROAT SPRAY EARLIER, DID NOT HELP. WILL CONTINUE TO MONITOR. CALL LIGHT WITHN REACH.
--- NOTE | 2020-02-15 14:10 | NUR ---
NOTIFIED LYLA DELA CRUZ ABOUT PATIENT BEING DIOPHORETIC, AND HAVING PROBLEMS COUGHING UP THICK SPUTUM. PATIENT FACE RED AND STATED NOT FEELING "WELL". LYLA OVER TO SEE PATIENT.
[2020-02-15 15:32] LABS: CKMB 0.6 U/L (0.0-3.6); CREATINE KINASE 89 UL (21-215); TROPONIN-I < 0.017 ng/mL (0.000-0.060)
[2020-02-15 16:00] VITALS: BP 114/71
--- NOTE | 2020-02-15 17:30 | NUR ---
PATIENT ATE ONLY A FEW BITES OF DINNER. DRANK WATER ONLY. IV INTACT. CALL LIGHT WITHN REACH. HASNT VOIDED YET. STATES SHE DOESNT NEED TO AT THIS TIME.
--- NOTE | 2020-02-15 18:44 | NUR ---
PATIENT IN BED RESTING QUIETLY. IV INTACT. BSCDS ON AND WORKING. CALL LIGHT WITHIN REACH.
[2020-02-15 20:00] VITALS: BP 108/69
[2020-02-15 21:57] LABS: CKMB 0.7 U/L (0.0-3.6); CREATINE KINASE 59 UL (21-215); TROPONIN-I < 0.017 ng/mL (0.000-0.060)
[2020-02-16 00:42] VITALS: BP 108/69
[2020-02-16 03:56] VITALS: BP 170/90
--- NOTE | 2020-02-16 04:09 | NUR ---
EKG X TWO THIS SHIFT PER ORDERS IN CHART.
[2020-02-16 04:59] LABS: CARBON DIOXIDE 32.6 mmol/L (21.0-32.0); CHLORIDE - SERUM 94 mmol/L (98-107); CKMB 0.7 U/L (0.0-3.6); CREATINE KINASE 76 UL (21-215); CREATININE - SERUM 0.6 mg/dL (0.6-1.3); POTASSIUM - SERUM 3.5 mmol/L (3.5-5.1); SODIUM 133 mmol/L (136-145); UREA NITROGEN 17 mg/dL (7-18); eGFR NON AFRICAN AMERICAN > 90 mL/min (90-120)
[2020-02-16 05:09] LABS: CALC OSMOLALITY 265 mosm/kg (275-300); GLUCOSE 68 mg/dL (74-106); HEMATOCRIT 43.2 % (36.0-48.0); HEMOGLOBIN 13.3 g/dL (12-16); MCH 27.4 pg (26.0-34.0); MCHC 30.8 g/dL (31.0-37.0); MCV 89.1 fL (80.0-100.0); MEAN PLATELET VOLUME 9.5 fL (7.4-10.4); PLATELET COUNT 239 10x3/uL (130-400); RBC 4.85 10x6/uL (4.00-5.40); RDW 18.9 % (11.5-14.5); WBC 21.8 10x3/uL (4.8-10.8)
[2020-02-16 05:10] LABS: TROPONIN-I 0.133 ng/mL (0.000-0.060)
--- NOTE | 2020-02-16 05:17 | NUR ---
LAB CALLED WITH TROPEN LEVEL OF 0.133 CALL TO CHILD ABUSE WORKER NO NEW ORDERS AT THIS TIME.
--- NOTE | 2020-02-16 08:04 | NUR ---
AFTER REVIEWING THE CHART, NOTICED AN ELEVATED TROP 0.133 AND AN EKG WAS OBTAINED AT 0345 THAT WAS ABNORMAL. I NOTIFIED LYLA DELA CRUZ, ORDERS RECEIVED TO CALL CARDIOLOGY. BANDAR PATIENTS NURSE IS PAGING CARDIOLOGY
--- NOTE | 2020-02-16 08:07 | NUR ---
SPOKE WITH NIK WITH CARDIOLOGY TO REPORT ELEVATED TROPONIN @ 0330 THIS AM WITH ABNORMAL EKG. STATES WILL SEE PT TODAY AND FOLLOW.
[2020-02-16 08:34] VITALS: BP 146/89
--- NOTE | 2020-02-16 10:10 | NUR ---
PT RESTING IN BED. O2@2L NC IN PLACE. PT PRESENTS WITH PRODUCTIVE COUGH. WHEN ATTEMPT TO HAVE PT SPIT SPUTUM OUT, PT SWALLOWS SPUTUM. COVID 19 SWAB COMPLETED AT THIS TIME. IV TO RIGHT IJ WITH 1/2NS @ 50ML/HR INFUSING VIA PUMP. SITE WITHOUT REDNESS OR EDEMA. PT DENIES PAIN AT THIS TIME. DRESSING TO LEFT HIP INTACT. IN AND OUT CATH PERFORMED VIA STERILE TECHNIQUE FOR UA AT THIS TIME. PUREWICK PLACED BACK INTO PLACE DUE TO INCONTINENCE. PERICARE GIVEN FOR INCONTINENCE. PT LAZ WELL. CL WITHIN REACH. ENCOURAGED TO CALL WITH NEEDS. CONTINUE POC
[2020-02-16 10:25] LABS: LYMPHOCYTES 13 % (15-50); MONOCYTES 8 % (2-11); NEUTROPHILS 71 % (40-80); PLATELET ESTIMATE NORMAL; ROULEAUX OCC
--- NOTE | 2020-02-16 11:45 | NUR ---
PT SITTING UP IN BED. O2 IN PLACE. INFORMED PT THAT STAFF WAS COMING IN TO ADMINISTER EYE DROPS AND CHANGE DRESSING TO IV SITE. PT MOTIONED TO STAFF AND STATED OK.
--- NOTE | 2020-02-16 11:58 | NUR ---
HOLE DIGGER TRUCK DRIVER ENTERED PT ROOM, PT WAS ASKED ABOUT LEVEL OF PAIN, PT TOOK A DEEP AGONAL BREATH. THIS STAFF ENTERED ROOM, CODE STATUS CHECKED. NO PULSE, NO HEART BEAT HEARD. CODE WILBERT CALLED, CPR INITIATED
--- NOTE | 2020-02-16 12:30 | NUR ---
PT BROUGHT TO UNIT VIA BED, ASYSTOLE ON THE MONITOR, CPR IN PROGRESS, SEE CODE BLUE SHEET
--- NOTE | 2020-02-16 13:00 | NUR ---
FAMILY ON UNIT, DR. PARKER DISCUSSED PT STATUS
--- NOTE | 2020-02-16 13:10 | NUR ---
FAMILY AT BEDSIDE, CPR STOPPED PER REQUEST
--- NOTE | 2020-02-16 13:23 | NUR ---
OT NOTE: PT SEEN PRIOR TO DC TO ICU. PT REPORTED THAT SHE FELT BAD.. ASSISTED TO EOB WITH MAX ASSIST; PT UNABLE TO TOLERATE SITTING UP FOR GREATER THAN JUST A FEW MIN AND REQUIRED MOD ASSIST FOR BALANCE. PT REPORTING INCREASED PAIN; L HIP NOTED WITH INCREASED DRAINAGE. INFORMED NURSING AND SHE CHANGED OUT BANDAGE. PT WAS ABLE TO ASSIST WITH ROLLLING FROM SIDE TO SIDE..REMAINS VERY WEAK. ELIZABETH DAWSON, OTR/L [phone]
--- NOTE | 2020-02-16 13:47 | NUR ---
SOWMYA NOTIFIED OF PT
--- NOTE | 2020-02-16 14:19 | NUR ---
HOME NOTIFIED OF NEED OF SERVICES
[2020-02-16 15:07] VITALS: Ht 152.4 cm; Wt 56.1 kg
--- NOTE | 2020-02-16 15:34 | NUR ---
OT NOTE: PT REQUIRED MAX A X2 FOR BED MOB TASKS AND POSITIONING. PT REQUIRED DRESSING CHANGE . NURSING COMPLETED DRESSING CHANGE. PT REQUIRED TOTAL A WITH LB/UB HYGIENE TASKS. PT IS WEAK. [phone] THANK YOU,TIFFANY CHACON
--- NOTE | 2020-02-16 17:01 | MORECARE ---
CASE MANAGEMENT DISCHARGE SUMMARY PATIENT: MARY LOUIE UNIT: [id number] ADM DATE: 02/05/20 AGE: 69 : 50 SEX: F ROOM/BED: D.2312 AUTHOR: YASMIN,DOC PHYSICIAN: REFERRING PHYSICIAN: PRISCILLA WALTERS MD DATE OF SERVICE: 02/16/20 Discharge Plan Patient Name: MARY LOUIE Facility: [facility]:[place] : 1950 Planned Disposition: Inpatient Rehab Anticipated Discharge Date: Discharge Date: 02/16/2020 Expected LOS: Initial Reviewer: [email or web address] Initial Review Date: 02/07/2020 Generated: 02/16/20 6:01 pm DCP- Discharge Planning Updated by [email or web address]: Yaneth Schuler on 02/12/20 11:[address] Gonzalez returned my call and I informed him of the consult. He states he will see the patient today. I called patient's primary nurse, Rosalee, and informed her that I spoke with Dr. Gonzalez. CM will continue to follow and assist with discharge planning/needs. DCP- Discharge Planning Updated by [email or web address]: Yaneth Schuler on 02/12/20 10:[address] Received an order for possible ophthalmology consult. I spoke with Janice, housekeeper and laundry assistant, and she does not know if they round in our hospital. I called ED per Janice's recommendation to see if they had ophthalmology aoc operations intelligence officer. Dr. Gonzalez is aoc operations intelligence officer and I have paged him to my number. Pager number is [phone]. CM will continue to follow and assist with discharge planning/needs. DCP- Discharge Planning Updated by [email or web address]: Jillian Lopez on 02/11/20 2:[address] LATE ENTRY 02/10/20 Patient Name: MARY LOUIE Admission Status: ER Accout number: [id number] Admission Date: 02-05-2020 : 1950 Admission Diagnosis:PAIN IN LEFT HIP Attending: PRISCILLA WALTRES Current LOS: 5 Anticipated DC Date: Planned Disposition: Inpatient Rehab Primary Insurance: [employer] ADV Discharge Planning Comments: CM was able to contact daughter Fanta [phone] there was a different number listed in chart. CM emailed registration to please update number in system. CM spoke with patient's daughter to complete initial dc planning assessment. CM educated patient on the CM role and verbal consent given by patient to complete assessment. Patient lives at home with her daughter where she is independent with her care. At discharge patient's daughter would like for patient to have rehab prior to returning home. PANCHITO completed CM discussed availability of home health, rehab services, and medical equipment. Her daughter will be her vending route driver home. Patient on has a cane / walking stick at home. Patient denied known discharge needs at this time. CM will continue to follow and will assist as needed with dc plans/needs. Lacquer Mixer: Jillian Lopez DCP- Discharge Planning Updated by [email or web address]: Jillian Lopez on 02/09/20 5:[address] CM attempted to call daughter again today [phone] a few times on different phones and still unable to get through still getting busy signal. DCP- Discharge Planning Updated by [email or web address]: Jillian Lopez on 02/08/20 2:[address] CM attempted to call patient's daughter again for discharge planning Fanta Barkley [phone] and also called patient's listed number [phone] and no voicemail set up. CM will continue to attempt to contact family. DCP- Discharge Planning Updated by [email or web address]: Jillian Lopez on 02/08/20 10:[address] Patient is currently on vent sedated. CM has attempted to call daughter Fanta Barkley [phone] multiple times this am and has gotten a busy signal each time. CM will continue to try to contact daughter for discharge planning. DCP- Discharge Planning Updated by [email or web address]: Jillian Lopez on 02/07/20 3:[address] CM attempted to see patient today regarding discharge planning / needs. Patient was in surgery at this time. CM will continue to follow and assist as needed with discharge planning. DCPIA - Discharge Planning Initial Assessment Updated by [email or web address]: Jillian Lopez on 02/11/20 3:50 pm * Is the patient Alert and Oriented? No * How many steps to enter\exit or inside your home? * PCP [facility] * Pharmacy [facility] * Preadmission Environment Home with Family * ADLs Independent * Equipment Cane * List name and contact numbers for known caregivers / representatives who currently or will assist patient after discharge: FANTA BARKLEY - DAUGHTER - [phone] * Verbal permission to speak to the caregivers and representatives has been obtained from the patient. Yes * Community resources currently utilized Other * Please name any agencies selected above. [facility] - AIDE 2-3 HRS MWF, [place] * Additional services required to return to the preadmission environment? No * Can the patient safely return to the preadmission environment? Yes * Has this patient been hospitalized within the prior 30 days at any hospital? No Last DP export: 02/12/20 11:09 a Patient Name: MARY LOUIE Page [id number] at 1701 All edits/amendments must be made on the electronic document DICTATION DATE: 02/16/201700 DIRECTOR PLANS: [place] 02/16/201700 RPT#: [id number] DC DATE:02/16/20 STATUS: DIS IN [facility] [address] [place] [address] END OF REPORT
--- NOTE | 2020-02-17 10:33 | EC ---
PATIENT:MARY LOUIE DATE OF SERVICE: 02/05/20 SEX: F MEDICAL RECORD: [id number] DATE OF : 50 LOCATION:[facility] D231 AGE OF PATIENT: 69 ADMISSION DATE: 02/05/20 REFERRING PHYSICIAN: INTERPRETING PHYSICIAN: IRWIN CALLOWAY MD ECHOCARDIOGRAM REPORT ECHO CHARGES 5 ECHO LIMITED Date: 02/16/20 CLINICAL DIAGNOSIS: CP ECHOCARDIOGRAPHIC MEASUREMENTS (adult normal given) AC root (d.<3.7cm) 0 cm LV Septum d (<1.2 cm> 0 cm Valve Excursion 0 cm LV Septum (systole) 0 cm Left Atria (s.<4.0cm> 0 cm LVPW d(<1.2cm) 0 cm RV (d.<2.3cm) 0 cm LVPW (sytole) 0 cm LV diastole(<5.6CM) 0 cm MV E-F(>70mm/sec) 0 cm LV systole 0 cm LVOT Diameter 0 cm MV exc.(>10mm) 0 cm Est.ejection fraction (50-75%) 0 % DOPPLER: LVIT 0 cm/sec A 0 cm/sec E 0 cm/sec LA 0 cm/sec RVSP 0 mmHg LVOT 0 cm/sec AOP1/2T 0 m/s Asc. Ao 0 cm/sec RVOT 0 cm/sec RA 0 cm/sec PA 0 cm/sec AV Gradient Peak 0 mmHg AV Mean 0 mmHg AV Area 0 cm MV Gradient Peak 0 mmHg MV Mean 0 mmHg MV Area 0 cm COMMENTS: LIMTED STUDY (2-D ONLY) Volunteer Firefighter: 1 JUAN NIXONOE Rolling Mill Operator Helper: 3 Dr. Gonzalez TAPE# PACS Pericardial Effusion N DATE OF SERVICE: Adequate 2D, color flow imaging, spectral Doppler, and M-Mode. Technically limited study for EF. LV internal dimensions were normal. LVH is present. LV wall motion is globally hypokinetic with reduced EF, estimated at 25%. The aortic valve appears tricuspid with good valve excursion. Mitral valve appears normal. Right-sided chambers are grossly normal. TRANSINT:[id number] Voice Confirmation ID: [id number] DOCUMENT ID: [id number] ECHOCARDIOGRAM REPORT [id number] MARY LOUIE IRWIN CALLOWAY MD at 1033 CC: [id number] DICTATION DATE: 02/17/20 08 CHIEF EMBALMER: 02/17/20 0911 DIS IN 02/16/20 [place] [id number] [place] [address]
== END 2020-02-16 13:00 | DRG 480 ==
LOC: D.ER 16:47 → D.CVICU 17:47 → D.M3 17:47 → D.MS 17:47 → D.ICU 02-06 11:07 → D.CVICU 02-06 19:47 → D.MS 02-14 12:30 → D.SDCHOLD 02-16 10:59 → D.MS 02-16 11:05 → D.ICU 02-16 12:32
PROVIDERS: Family Medicine; Internal Medicine Pulmonary Disease; Orthopaedic Surgery; ADMIT Internal Medicine Nephrology; ATTEND Internal Medicine Nephrology
PROC: 0QS736Z Reposition Left Upper Femur with Intramedullary Internal Fixation Device, Percutaneous Approach (ICD-10-PCS; principal; 2020-02-07 12:45)
PROC: 0BH17EZ Insertion of Endotracheal Airway into Trachea, Via Natural or Artificial Opening (ICD-10-PCS; 2020-02-08)
PROC: 5A1955Z Respiratory Ventilation, Greater than 96 Consecutive Hours (ICD-10-PCS; 2020-02-08)
DX: S72.142A Displaced intertrochanteric fracture of left femur, initial encounter for closed fracture (principal); G93.41 Metabolic encephalopathy; J96.21 Acute and chronic respiratory failure with hypoxia; J18.9 Pneumonia, unspecified organism; R40.2124 Coma scale, eyes open, to pain, 24 hours or more after hospital admission; R40.2214 Coma scale, best verbal response, none, 24 hours or more after hospital admission; E44.0 Moderate protein-calorie malnutrition; Z68.1 Body mass index [BMI] 19.9 or less, adult; J98.11 Atelectasis; E87.3 Alkalosis; W07.XXXA Fall from chair, initial encounter; E87.6 Hypokalemia; H11.31 Conjunctival hemorrhage, right eye; M06.9 Rheumatoid arthritis, unspecified; I10 Essential (primary) hypertension; R56.9 Unspecified convulsions; K21.9 Gastro-esophageal reflux disease without esophagitis; M19.90 Unspecified osteoarthritis, unspecified site; F32.9 Major depressive disorder, single episode, unspecified; J44.9 Chronic obstructive pulmonary disease, unspecified; F03.90 Unspecified dementia, unspecified severity, without behavioral disturbance, psychotic disturbance, mood disturbance, and anxiety; D50.9 Iron deficiency anemia, unspecified; G40.909 Epilepsy, unspecified, not intractable, without status epilepticus; H21.01 Hyphema, right eye; E78.5 Hyperlipidemia, unspecified; R40.2354 Coma scale, best motor response, localizes pain, 24 hours or more after hospital admission